=== PATIENT | male | born 1945 ===

== ENCOUNTER 2019-11-22 13:37 | Inpatient (IN) | payer MEDICARE, MEDICAID, SELFPAY ==
[2019-11-22] VITALS (8 sets, daily range): BP systolic 111–138; BP diastolic 65–81; PULSE 78–112; RESP 16–20; TEMP 36.3–36.7; O2SAT 92–99; BMI 32.2
--- NOTE | 2019-11-22 14:03 | ED_ITS ---
HPI - Fall General: Chief Complaint: Fall Stated Complaint: FALL, LAC TO LEFT EAR Time Seen by Provider: 11/22/19 13:37 History of Present Illness: HPI Narrative: 74-year-old male who fell. He lives at home he was sitting in a chair and just fell over sideways. He has frequent falls related to some kind of neurologic disorder is been a several different doctors have been unable to determine anything specific. He has a very unusual laceration across his ear extending into his cheek through the tragus. He has active bleeding from it initially he has a large bulky bandage on it which is soaked with blood this was removed and wound examined briefly and re-bandage see below. He had did have a loss of consciousness for period of time he was assisted back up by family members. He also has a right foot ulcer which is wrapped he seen at the [facility] wound clinic. complaint: fall Onset (ago): hour(s) Fall from: chair Fall witnessed: yes, by family Place fall occurred: home Loss of consciousness: Yes Length of LOC: minutes(s) Prolonged down time: no Symptoms prior to fall: none Location of injury: face Severity: mild Quality: sharp Associated symptoms-after fall: Reports weakness; Denies abdominal pain, chest pain, confusion, difficulty walking, headache(s), hematuria, lightheadedness, neck pain, numbness or short of breath Review of Systems Const: Denies: fever(s), chills, body aches, change in appetite, fatigue or malaise ENMT: Denies: throat pain, ear or mastoid pain, nasal discharge or nasal congestion Card: Denies: chest pain or lightheadedness Resp: Denies: dyspnea, productive cough or non-productive cough GI: Denies: abdominal pain : Denies: hematuria Musc: Denies: neck pain Skin/Breast: Denies: rash or pruritus Neuro: Denies: headache(s), difficulty walking or confusion PFSH ED PFSH: Medical History Chronic anemia -acute on chronic normocytic/macrocytic anemia -baseline Hg is around 10-12 -on dual antiplatelet therapy and therapeutic AC -continue to monitor H/H closely -transfuse if continued drop < 8; received 1 unit of PRBCs (11/22) CKD (chronic kidney disease), stage III Congestive heart failure -chronic combined systolic and diastolic CVA (cerebral vascular accident) -noted evidence of prior lacunar infarcts on CT head -no focal neuro deficits Diabetes mellitus -A1c-10.1 -complicated by nephropathy and peripheral neuropathy -Accucheks, ISS, hypoglycemia precautions -consistent carb diet as tolerated Dyslipidemia -lipid panel noted -CPK wnl, on statin GERD (gastroesophageal reflux disease) -on PPI Gout -no clinical evidence of acute flare -on allopurinol HTN (hypertension) -VSS; continue to monitor -continue to hold ACEi due to renal impairment Obstructive sleep apnea -severe per sleep study in 2016 Peripheral neuropathy -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 No need to resume vitamin B12 replacement Peripheral vascular disease -unknown how extensive this is -on DAPT and statin; held due to need for temporary dialysis catheter placement -on pentoxifylline Pulmonary HTN -mild per Echo Syncope -per history, has had several episodes of syncope including while driving; unclear etiology -med list includes florinef so likely component of orthostasis; orthostatics positive; on Florinef, add salt tablets -close monitoring of vital signs -telemetry monitoring -Echo: EF=45%, global left ventricular hypokinesis, G2DD, mild pulmonary hypertension, moderate MR, mild , moderate TR. -carotid US: <50% bilateral stenosis -CT head shows evidence of multiple prior lacunar infarcts involving the basal ganglia bilaterally, left caudate, right thalamus and right cerebellum. This may be contributing to his unsteady gait and poor balance. Repeat CT unchanged -UA shows evidence of infection -PT/OT evaluations appreciated: SNF recommended -noted anemia and acute renal impairment -IVF hydration -CT C-spine and facial bones noted -strict fall precautions -CPK wnl -Noted orthostatic hypotension here, in the context of poorly controlled diabetes and peripheral neuropathy suspect that this is to some degree due to autonomic dysfunction. Surgical History Hx of total knee arthroplasty Family History Other Cancer Diabetes Hypertension Denies family history of CAD (coronary artery disease) Social History (Reviewed 11/29/19 @ 11:41 by MIREYA Umana Smoking and tobacco status: never smoked Alcohol intake: never Lives independently: Yes Physical Exam Const: COMMON NORMALS: no acute distress GENERAL APPEARANCE: cooperative and comfortable HENMT: COMMON NORMALS: normocephalic HEAD & SCALP: normocephalic OTHER: Facial laceration across the lateral aspect of the cheek extending posteriorly through the tragus and through the antihelix and helix there is significant of blood present it was not irrigated since the neck had not been cleared yet. Reexamined after scans. Eye: COMMON NORMALS: Equal, round and reactive pupils present, EOMs intact bilaterally, conjunctivae normal and no scleral icterus CONJUNCTIVA: Yes conjunctivae normal PUPIL: Yes Equal, round and reactive pupils present Neck/C-Spine: COMMON NORMALS: full ROM, no lymphadenopathy, supple and no JVD Lymph: LYMPHATIC: no lymphadenopathy noted and no lymphedema noted Resp: COMMON NORMALS: normal respiratory effort, No retractions, No use of accessory muscles and clear to auscultation bilaterally AUSCULTATION: clear to auscultation bilaterally Cardio: COMMON NORMALS: no JVD, regular rate, regular rhythm and No murmurs present (Cardio) RATE: regular rate RHYTHM: regular rhythm GI: COMMON NORMALS: Soft to palpation and No hepatosplenomegaly present AUSCULTATION: Yes normoactive bowel sounds PALPATION: Yes Soft to palpation, No Tenderness to palpation present (GI), No Guarding due to palpation present (GI) and Yes No hepatosplenomegaly present Extremity: COMMON NORMALS: normal to inspection, capillary refill normal, no clubbing, cyanosis or edema, no calf tenderness and no pedal edema Skin: COMMON NORMALS: no rashes or lesions noted GENERAL SKIN EXAM: no rashes or lesions noted Procedures Laceration Laceration 1: Site: face (Cheek and ear) Side (If applicable): left Size (cm): 8 Description: irregular Depth: simple, single layer Local Anesthetic: lidocaine 1% Amount of anesthesia used (mL): 8 Pre-repair: irrigated extensively Skin layer closed with: nylon Size (cm): 5-0 Technique: simple, interrupted Course Vital Signs: Vital signs: Vital Signs Temperature 96.4 F L 11/25/19 07:00 Pulse Rate 59 L 11/25/19 14:00 Respiratory Rate 16 11/25/19 15:24 Blood Pressure 149/75 11/25/19 14:00 Pulse Oximetry 65 L 11/25/19 15:24 MDM - Fall MDM Narrative: Medical decision making narrative: Wound is irrigated after anesthetized 1% lidocaine. Patient tolerated well initially began closing across the face and the tragus also closed the outer helix. Discussed then due to another emergency Sammie CHAPA finished the suturing. Good approximation cosmesis and hemostasis I did check to suturing the a completed. Admit to Dr. Lynch. Patient has mild hyperkalemia, acute renal failure syncope peripheral neuropathy frequent falls. Lab Data: Labs: Lab Results 11/22/19 11/22/19 11/22/19 Range/Units 14:19 14:19 14:19 WBC 10.9 H (4.0-10.0) 10^3/ uL RBC 3.17 L (4.1-5.3) 10^6/u L Hgb 9.5 L (11.7-16.6) g/dL Hct 30.4 L (42.0-52.0) % MCV 95.9 H (80-94) fL MCH 30.0 (28.0-34.0) pg MCHC 31.3 (30.0-36.0) g/dL RDW 14.5 (12.1-15.1) % Plt Count 469 H (130-400) 10^3/c mm MPV 10.7 H (7.4-10.4) fL Neut % (Auto) 77.0 % Lymph % (Auto) 9.9 % [place] % (Auto) 11.0 % Eos % (Auto) 1.1 % Baso % (Auto) 0.4 % Neut # (Auto) 8.36 H (1.8-7.7) 10^3/u L Lymph # (Auto) 1.1 (0.8-4.8) 10^3/u L [place] # (Auto) 1.2 H (0.2-0.9) 10^3/u L Eos # (Auto) 0.1 (0.0-0.8) 10^3/u L Baso # (Auto) 0.0 (0.0-0.1) 10^3/u L Nucleated RBC % (a uto) 0 % Nucleated RBCs # 0.0 /100WBC Sodium 135 L (136-145) mmol/L Potassium 4.7 (3.5-5.1) mmol/L Chloride 102 (98-107) mmol/L Carbon Dioxide 21 L (22-29) mmol/L Anion Gap 16.7 (5-19) BUN 23 (8-23) mg/dL Creatinine 1.7 H (0.7-1.2) mg/dL GFR Calculation Not Reportable Glucose 92 (65-115) mg/dL Calculated Osmolal ity 276 L (285-295) mOsm/k g Calcium 9.2 (8.5-10.5) mg/dL Total Bilirubin 0.8 (0.15-1.2) mg/dL AST 33 (0-40) U/L ALT 14 (0-41) U/L Alkaline Phosphata se 311 H (40-130) IU/L Creatine Kinase 69 (39-308) U/L Total Protein 6.9 (6.6-8.7) g/dL Albumin 3.2 L (3.5-5.2) g/dL Globulin 3.7 (1.3-4.6) g/dL Urine Color (Yellow) Urine Appearance (CLEAR) Urine pH (5-7) Ur Specific Gravit y (1.005-1.030) Urine Protein (Negative) Urine Glucose (UA) (Normal) Urine Ketones (Negative) Urine Blood (Negative) Urine Nitrate (Negative) Urine Bilirubin (NEGATIVE) Urine Urobilinogen (Negative) mg/dL Ur Leukocyte Tiera ase (Negative) Urine RBC (0-2) /hpf Urine WBC (0-5) /hpf Ur Squamous Epith Cells (0-5) Amorphous Sediment Urine Bacteria (NONE) Hyaline Casts 11/22/19 Range/Units 14:33 WBC (4.0-10.0) 10^3/ uL RBC (4.1-5.3) 10^6/u L Hgb (11.7-16.6) g/dL Hct (42.0-52.0) % MCV (80-94) fL MCH (28.0-34.0) pg MCHC (30.0-36.0) g/dL RDW (12.1-15.1) % Plt Count (130-400) 10^3/c mm MPV (7.4-10.4) fL Neut % (Auto) % Lymph % (Auto) % [place] % (Auto) % Eos % (Auto) % Baso % (Auto) % Neut # (Auto) (1.8-7.7) 10^3/u L Lymph # (Auto) (0.8-4.8) 10^3/u L [place] # (Auto) (0.2-0.9) 10^3/u L Eos # (Auto) (0.0-0.8) 10^3/u L Baso # (Auto) (0.0-0.1) 10^3/u L Nucleated RBC % (a uto) % Nucleated RBCs # /100WBC Sodium (136-145) mmol/L Potassium (3.5-5.1) mmol/L Chloride (98-107) mmol/L Carbon Dioxide (22-29) mmol/L Anion Gap (5-19) BUN (8-23) mg/dL Creatinine (0.7-1.2) mg/dL GFR Calculation Glucose (65-115) mg/dL Calculated Osmolal ity (285-295) mOsm/k g Calcium (8.5-10.5) mg/dL Total Bilirubin (0.15-1.2) mg/dL AST (0-40) U/L ALT (0-41) U/L Alkaline Phosphata se (40-130) IU/L Creatine Kinase (39-308) U/L Total Protein (6.6-8.7) g/dL Albumin (3.5-5.2) g/dL Globulin (1.3-4.6) g/dL Urine Color Yellow (Yellow) Urine Appearance Clear (CLEAR) Urine pH 6 (5-7) Ur Specific Gravit y 1.020 (1.005-1.030) Urine Protein 3+ H (Negative) Urine Glucose (UA) Trace H (Normal) Urine Ketones Negative (Negative) Urine Blood 2+ H (Negative) Urine Nitrate Positive H (Negative) Urine Bilirubin Neg (NEGATIVE) Urine Urobilinogen Norm (Negative) mg/dL Ur Leukocyte Tiera ase Trace H (Negative) Urine RBC 5-10 H (0-2) /hpf Urine WBC 5-10 H (0-5) /hpf Ur Squamous Epith Cells 0-4 H (0-5) Amorphous Sediment Not Reportable Urine Bacteria 2+ H (NONE) Hyaline Casts 0-4 H Discharge Plan Discharge Patient Disposition: Admitted As Inpatient Admit Provider: Elizabeth Lynch Clinical Impression: Syncope, UTI (urinary tract infection), Altered mental status, Peripheral neuropathy, Acute renal failure Condition: Interventions: ED Discharge Assessment Last Done: 11/22/19 18:57 ED Charges Last Done: 11/22/19 18:57 Discharge Date/Time: 11/22/19 19:25 Coding Level of Care Code ED Surveyor Chain Helper for Chg Fwd Exam Comprehensive
--- NOTE | 2019-11-22 14:09 | CT_ITS ---
WS: [id number] CT CERVICAL TRAUMA TECHNIQUE: Noncontrast CT of the cervical spine with coronal and sagittal reformatted images. CLINICAL INFORMATION: fall neck pain COMPARISON: CT 10 011 DLP: 617.[address] scans at [facility] use at least one of these dose optimization techniques: automat ed exposure control; mA and/or kV adjustment per patient size (includes targeted exams where dose is matched to clinical indication); or iterative reconstruction. FINDINGS: Straightening of the normal cervical lordosis. Normal craniocervical junction. Normal C1-C2 articulat ion. Dens is normal in appearance. Normal occipital condyles. No high-grade spinal canal narrowing. N ormal C1 ring. No evidence of acute fracture or dislocation. Mild spondylitic changes cervical spine. Normal prevertebral soft tissues. Mastoids air cells are well aerated. Notified Mina Cullen DO at 11/22/2019 3:[address]/CT cervical spin wo con* [id number] IMPRESSION: No evidence of acute fracture or dislocation.
--- NOTE | 2019-11-22 14:09 | CT_ITS ---
WS: [id number] CT HEAD TECHNIQUE: Noncontrast CT of the head obtained from the skullbase to the vertex. CLINICAL INFORMATION: fall/LOC/trauma COMPARISON: CT and MRI June 12, 2017 DLP: 898.[address] scans at [facility] use at least one of these dose optimization techniques: automat ed exposure control; mA and/or kV adjustment per patient size (includes targeted exams where dose is matched to clinical indication); or iterative reconstruction. FINDINGS: No evidence of intracranial hemorrhage or mass effect. Ventricular system and basal cisterns are dove nt. Moderate small vessel changes with moderate parenchymal volume loss. Multiple chronic lacunar inf arcts in the basal ganglia. Chronic lacunar infarcts in the right cerebellum. No extra-axial fluid co llections. No evidence of mass or mass effect. Normal goff-white differentiation. Paranasal sinuses and mastoid air cells are well aerated. .Normal visualized soft tissues. Notified Mina Cullen DO at 11/22/2019 3:[address]/CT head wo con* [id number] IMPRESSION: 1. No evidence of intracranial hemorrhage or mass effect. 2. [id number] small vessel changes with moderate parenchymal volume loss . 3. Multiple chronic lacunar infarcts in the basal ganglia bilaterally, left ca udate, right thalamus, and right cerebellum. 4. No acute intracranial findings.
[2019-11-22 14:23] LABS: Basophils % 0.4 %; Eosinophils # 0.1 10^3/uL (0.0-0.8); Eosinophils % 1.1 %; Hematocrit 30.4 % (42.0-52.0); Hemoglobin 9.5 g/dL (11.7-16.6); Lymphocytes # 1.1 10^3/uL (0.8-4.8); Lymphocytes % 9.9 %; Mean Corpuscular HGB Conc 31.3 g/dL (30.0-36.0); Mean Corpuscular Volume 95.9 fL (80-94); Mean Platelet Volume 10.7 fL (7.4-10.4); Monocytes # 1.2 10^3/uL (0.2-0.9); Neutrophils # 8.36 10^3/uL (1.8-7.7); Nucleated Red Blood Cells % 0 %; Platelet Count 469 10^3/cmm (130-400); Red Blood Count 3.17 10^6/uL (4.1-5.3); Red Cell Distribution Width 14.5 % (12.1-15.1); White Blood Count 10.9 10^3/uL (4.0-10.0)
[2019-11-22 14:44] LABS: Alanine Aminotransferase 14 U/L (0-41); Albumin Level 3.2 g/dL (3.5-5.2); Alkaline Phosphatase 311 IU/L (40-130); Anion Gap 16.7 (5-19); Aspartate Amino Transferase 33 U/L (0-40); Blood Urea Nitrogen 23 mg/dL (8-23); Calcium 9.2 mg/dL (8.5-10.5); Carbon Dioxide 21 mmol/L (22-29); Chloride 102 mmol/L (98-107); Globulin 3.7 g/dL (1.3-4.6); Glucose 92 mg/dL (65-115); Osmolality Calculated 276 mOsm/kg (285-295); Potassium 4.7 mmol/L (3.5-5.1); Sodium 135 mmol/L (136-145); Total Bilirubin 0.8 mg/dL (0.15-1.2); Total Protein 6.9 g/dL (6.6-8.7)
[2019-11-22 14:47] LABS: Bilirubin Urine Neg (NEGATIVE); Blood Urine 2+ (Negative); Glucose Urine UA Trace (Normal); Ketones Urine Negative (Negative); Nitrate Urine Positive (Negative); Protein Urine 3+ (Negative); Urine Appearance Clear (CLEAR); Urine Color Yellow (Yellow); Urobilinogen Urine Norm (Negative); pH Urine 6 (5-7)
[2019-11-22 14:48] LABS: Add Urine Microscopic? YES; Leukocyte Esterase Urine Trace (Negative)
[2019-11-22 14:50] LABS: Hyaline Casts Urine 0-4; Squamous Epithelial Cell Urine 0-4 (0-5)
[2019-11-22 14:51] LABS: Add Urine Culture? Yes; Bacteria Urine 2+
--- NOTE | 2019-11-22 14:52 | PC.NURSE ---
Pt to CT at this time accompanied by CT staff x2
--- NOTE | 2019-11-22 15:06 | CT_ITS ---
WS: [id number] CT FACIAL BONES TECHNIQUE: Noncontrast facial bones with coronal and sagittal reformatted images. CLINICAL INFORMATION: fall/trauma COMPARISON: None. DLP: 774.[address] scans at [facility] use at least one of these dose optimization techniques: automat ed exposure control; mA and/or kV adjustment per patient size (includes targeted exams where dose is matched to clinical indication); or iterative reconstruction. FINDINGS: Anterior nasal bones are normal. Normal lateral orbits. Normal lamina papyracea. Paranasal sinuses ar e well aerated. Mastoid air cells are well aerated. Soft tissue edema with laceration overlying the l eft inferior and lateral facial soft tissues. Left zygoma is normal. Normal pterygoid plates. No evid ence of mandibular fracture dislocation. Normal C1 ring. Inferior orbits are normal in appearance. No rmal visualized posterior nasopharynx. Visualized upper cervical spine is normal. CT/CT facial bones wo con* [id number] IMPRESSION: 1. Soft tissue edema overlying the left facial soft tissues. 2. No visualized facial fractures. 3. Both orbits are normal. 4. Paranasal sinuses are well aerated.
--- NOTE | 2019-11-22 15:15 | PC.NURSE ---
VS taken at 1430 not 1446.
[2019-11-22] MEDS: cefTRIAXone 1,000 MG in sodium chloride 0.9% (plus) 50 ML 100 MG IV (16:25)
--- NOTE | 2019-11-22 17:40 | PC.NURSE ---
Dr. Cullen and Sammie CHAPA sutured pt left cheek and ear at this time. Pt tolerated procedure well. 19 sutures counted after procedure.
[2019-11-22] MEDS: morphine 4 mg/mL SDV 1 mL IVP (18:43)
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
[2019-11-22] MEDS: lidocaine 1% INJ 20 mL INJECTION (18:45)
[2019-11-22] MEDS: sodium chloride 0.9% 1,000 ML 999 ML IV (18:45)
[2019-11-22 19:58] LABS: Creatine Phosphokinase 69 U/L (39-308)
[2019-11-22 20:12] LABS: Troponin(5th) Baseline 297 ng/L (0-15)
--- NOTE | 2019-11-22 21:16 | ECG_ITS ---
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 Measurements Intervals [place] Rate: 80 P: 31 CT: 172 QRS: 67 QRSD: 103 T: 28 QT: 421 QTc: 486 Interpretive Statements SINUS RHYTHM ST DEVIATION AND MODERATE T-WAVE ABNORMALITY, CONSIDER ANTERIOR ISCHEMIA [-0.1+ mV T WAVE IN V3/V4] Compared to ECG 10/21/2018 23:36:50 Possible ischemia now present T-wave abnormality still present Electronically Signed On 11-24-2019 0:31:18 CDT by Lucie Bergeron M.D. [id number]
[2019-11-22 21:23] LABS: Glucose Point of Care 65 mg/dL (70-110)
[2019-11-22] MEDS: diclofenac 1% Topical Gel 100 gm 1 APPLIC TOPICAL (21:35)
[2019-11-22] MEDS: sodium chloride 0.9% 1,000 ML 100 ML IV (21:35)
[2019-11-22 21:40] LABS: Troponin 5 2HR Delta 5.3 ABS# (0-10)
[2019-11-22 21:48] LABS: Troponin 5 2HR 302.3 ng/L (0-15)
--- NOTE | 2019-11-22 22:23 | PM.EVENT ---
Event Note Event Note: Baseline troponin came back elevated at 297. Patient has no complaints of chest pain. EKG was not done but I have requested that it be done. I have gone on and resume patient's home aspirin and given him 325 mg p.o. now. Also went on and resume his statin therapy and ordered some beta-blockade. Will give Lovenox 1 mg per kg. We will need to watch for any signs of bleeding with the falls that he has had. Platelet count and hemoglobin were okay earlier, he was anemic at 9.5. Last available comparative lab was from October of last year when it was 10.3. We will continue to trend cardiac enzymes. Event Notes Attestations Time Spent in Patient Care: less than 15 minutes 12 minutes
[2019-11-22] MEDS: enoxaparin 100 mg/mL Syringe 70 MG SUBCUT (23:10)
[2019-11-22] MEDS: aspirin 325 mg EC Tablet PO (23:10)
[2019-11-22 23:19] LABS: Glucose Point of Care 123 mg/dL (70-110)
[2019-11-23] VITALS (20 sets, daily range): BP systolic 90–150; BP diastolic 53–90; PULSE 57–81; RESP 13–20; TEMP 34.3–36.9; O2SAT 90–100
--- NOTE | 2019-11-23 01:16 | ECG_ITS ---
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 Measurements Intervals [place] Rate: 78 P: 39 [place]: 176 QRS: 66 QRSD: 101 T: 27 QT: 403 QTc: 461 Interpretive Statements SINUS RHYTHM ST DEVIATION AND MODERATE T-WAVE ABNORMALITY, CONSIDER ANTERIOR ISCHEMIA [-0.1+ mV T WAVE IN V3/V4] Compared to ECG 11/22/2019 22:30:55 No significant changes Electronically Signed On 11-24-2019 0:33:06 CDT by Lucie Bergeron M.D. [id number]
[2019-11-23 01:49] LABS: Basophils % 0.5 %; Eosinophils # 0.2 10^3/uL (0.0-0.8); Eosinophils % 2.9 %; Hematocrit 26.6 % (42.0-52.0); Hemoglobin 8.3 g/dL (11.7-16.6); Lymphocytes # 1.5 10^3/uL (0.8-4.8); Lymphocytes % 18.1 %; Mean Corpuscular HGB Conc 31.2 g/dL (30.0-36.0); Mean Corpuscular Hemoglobin 31.3 pg (28.0-34.0); Mean Corpuscular Volume 100.4 fL (80-94); Mean Platelet Volume 10.9 fL (7.4-10.4); Monocytes # 1.2 10^3/uL (0.2-0.9); Neutrophils # 5.31 10^3/uL (1.8-7.7); Nucleated Red Blood Cells % 0 %; Platelet Count 392 10^3/cmm (130-400); Red Blood Count 2.65 10^6/uL (4.1-5.3); Red Cell Distribution Width 14.8 % (12.1-15.1); White Blood Count 8.3 10^3/uL (4.0-10.0)
[2019-11-23 02:15] LABS: Alanine Aminotransferase 15 U/L (0-41); Albumin Level 2.8 g/dL (3.5-5.2); Alkaline Phosphatase 306 IU/L (40-130); Anion Gap 16.8 (5-19); Aspartate Amino Transferase 35 U/L (0-40); Blood Urea Nitrogen 26 mg/dL (8-23); Calcium 7.9 mg/dL (8.5-10.5); Carbon Dioxide 21 mmol/L (22-29); Chloride 103 mmol/L (98-107); Globulin 3.8 g/dL (1.3-4.6); Glucose 135 mg/dL (65-115); Osmolality Calculated 281 mOsm/kg (285-295); Potassium 4.8 mmol/L (3.5-5.1); Sodium 136 mmol/L (136-145); Total Bilirubin 0.6 mg/dL (0.15-1.2); Total Protein 6.6 g/dL (6.6-8.7)
[2019-11-23 02:21] LABS: Cholesterol 101 mg/dL (0-200); HDL Cholesterol 44 mg/dL (60-100); LDL Cholesterol Calculated 43 mg/dL (50-129); LDL HDL Ratio 0.98 RATIO (0.00-3.22); Thyroid Stimulating Hormone 4.73 uIU/mL (0.27-4.20); Triglycerides 71 mg/dL (0-150)
[2019-11-23 02:34] LABS: Troponin 5 6HR Delta -11.9 ng/L (0-12)
[2019-11-23 02:36] LABS: Troponin 5 6HR 285.1 ng/L (0-15)
[2019-11-23 03:01] LABS: Vitamin B12 1420 pg/mL (232-1245)
[2019-11-23 03:55] LABS: Estmated Average Glucose 243; Hemoglobin A1C 10.1 % (4.0-6.0)
[2019-11-23] MEDS: sodium chloride 0.9% 1,000 ML 100 ML IV ×2 (04:45→17:34)
[2019-11-23 07:36] LABS: Glucose Point of Care 91 mg/dL (70-110)
[2019-11-23] MEDS: HYDROcodone-acetaminophen 5-325 mg Tablet 1 TAB PO (10:24)
[2019-11-23] MEDS: enoxaparin 100 mg/mL Syringe 70 MG SUBCUT (10:24)
[2019-11-23] MEDS: clopidogrel 75 mg Tablet PO (10:25)
[2019-11-23] MEDS: gemfibrozil 600 mg Tablet PO (10:25)
[2019-11-23] MEDS: aspirin 81 mg Chew Tablet PO (10:25)
[2019-11-23] MEDS: allopurinol 300 mg Tablet PO (10:26)
[2019-11-23] MEDS: pantoprazole DR 40 mg Tablet PO ×2 (10:26→17:36)
[2019-11-23] MEDS: metoprolol tartrate 25 mg Tablet PO (10:26)
[2019-11-23] MEDS: duloxetine 60 mg Capsule PO (10:27)
[2019-11-23] MEDS: diclofenac 1% Topical Gel 100 gm 1 APPLIC TOPICAL ×2 (10:33→13:24)
[2019-11-23] MEDS: fludrocortisone 0.1 mg Tablet PO (10:34)
--- NOTE | 2019-11-23 10:50 | PC.CHAP ---
Pastoral Care Encounter/Spiritual Assessment Type of Contact [] Declined dormitory supervisor visit [] Patient/Family/Request visit [] Outpatient visit [] Follow-up visit [] Physician referral [] Code/Alert [x] Routine visit [] Staff referral [] Actively dying [] Patient sleeping [] Family support [] [] Out of room [] Palliative care [] [x] Receiving care in room [] Pre-surgical visit [] Trauma [] Long length of stay [] ICU visit [] Other: Relational/Emotional Strength [x] Patient feels connected with others/family/visitors/staff [] Distress [] Loneliness/isolation [] Abandonment Spirituality of Patient [x] Person of Keyla [] Attends Oriental Orthodox of their Keyla [x] Believes in Prayer [] Reads Bible or Zoroastrian materials [] There are Spiritual issues to be addressed Lifestyle Coordinator Interventions [x] Prayer [x] Active listening [x] Non-anxious presence [x] Spiritual/emotional support [] Crisis/trauma care [x] Spiritual counseling [] Bereavement support [] Provided bereavement packet [] Provided Bible/devotional materials [] Provided toy/stuffed animal, coloring book to patient or family member [] Provided Communion [] Anointing/[place] [] Salvation [x] Completed spiritual assessment [] Other: Impact on Illness or Injury [] Angry [x] Fearful [x] Anxious [] Often cries [] Exhaustion [] Unable to work [] Unable to attend mormon [] Unable to walk/stand [] Unable to read [] Unable to drive [] Unable to eat/drink [] Unable to sleep [] Unable to be with family [] Patient intubated [] Other: Summary Falls alot, in pain, doesn't know about tests waiting to see doctor, feels good able to communicate her feelings Time spent with patient 10 mins
--- NOTE | 2019-11-23 11:09 | PM.PN ---
Subjective Subjective: Interval history: Found to be orthostatic, on room air, afebrile, currently hemodynamically stable. Noted drop in hemoglobin from 9.5->8.3 which may dilutional. Slight worsening in renal function with creatinine up to 1.8. Noted troponin elevation with a delta of -12. Overnight was started on therapeutic Lovenox, Plavix, aspirin due to concern for NSTEMI. Echo and carotid ultrasound pending. On IV fluid hydration, ceftriaxone. R foot wound cleaned and dressed by provider at bedside. Continues to be orthostatic, initially sitting in a chair by bedside then complained of dizziness. Quite weak per discussion with therapy some oozing noted from left ear laceration. Assisted to bed with nursing staff. Medications: Reviewed: Yes Medication Review Details: Active Medications Generic Name Dose Route Start Last Admin Trade Name Freq PRN Reason Stop Dose Admin Hydrocodone Bitart /Acetaminophen 1 tab 11/22/19 19:26 11/23/19 10:24 Liberty 5-325 Mg PO 1 tab Q4H PRN Administration MODERATE TO SEVER E PAIN Allopurinol 300 mg 11/23/19 09:00 11/23/19 10:26 Zyloprim PO 300 mg DAILY PETER Administration Aspirin 81 mg 11/23/19 09:00 11/23/19 10:25 Aspirin Chewable PO 81 mg DAILY PETER Administration Clopidogrel Bisulf ate 75 mg 11/23/19 09:00 11/23/19 10:25 Plavix PO 75 mg DAILY PETER Administration Dextrose 25 ml 11/22/19 18:56 D50w IVP ONCE PRN hypoglycemia prot ocol Protocol Dextrose 50 ml 11/22/19 18:56 D50w IVP PRN PRN hypoglycemia prot ocol Protocol Diclofenac Sodium 1 applic 11/22/19 21:00 11/23/19 10:33 Voltaren TOPICAL 1 applic QID PETER Administration Duloxetine HCl 60 mg 11/23/19 09:00 11/23/19 10:27 Cymbalta PO 60 mg DAILY PETER Administration Enoxaparin Sodium 70 mg 11/22/19 22:30 11/23/19 10:24 Lovenox 1 mg/kg (70 mg) 70 mg SUBCUT Administration Q12H [facility] Fludrocortisone Ac etate 0.1 mg 11/23/19 09:00 11/23/19 10:34 Florinef PO 0.1 mg DAILY PETER Administration Gemfibrozil 600 mg 11/23/19 09:00 11/23/19 10:25 Lopid PO 600 mg BID PETER Administration Glucagon 1 mg 11/22/19 18:56 Glucagen IM ONCE PRN Adult Acute Hypog lycemia Prot. Protocol Dextrose 500 mls @ 100 mls /hr 11/22/19 18:56 D5w IV ONCE PRN Adult Acute Hypog lycemia Prot Protocol Ceftriaxone Sodium 1,000 mg/ 50 mls @ 100 mls/ hr 11/23/19 16:00 Sodium Chloride IV Q24H PETER Protocol Sodium Chloride 1,000 mls @ 100 m ls/hr 11/22/19 19:26 11/23/19 04:45 Sodium Chloride 0.9% IV 100 mls/hr .Q10H PETER Administration Insulin Aspart 0 unit 11/22/19 21:00 11/23/19 07:53 Novolog SUBCUT Not Given WM&BEDTIME [facility] Protocol Insulin Detemir 20 unit 11/22/19 21:00 11/22/19 21:36 Levemir SUBCUT Not Given BEDTIME [facility] Metoprolol Tartrat e 25 mg 11/23/19 09:00 11/23/19 10:26 Lopressor PO 25 mg BID PETER Administration Morphine Sulfate 2 mg 11/22/19 19:26 Morphine IVP Q4H PRN SEVERE PAIN Non-Formulary Medi cation 400 mg 11/22/19 21:00 11/22/19 21:26 Pentoxifylline PO Not Given TID [facility] Ondansetron HCl 4 mg 11/22/19 19:26 Zofran IVP Q6H PRN NAUSEA AND VOMITI NG Pantoprazole Sodiu m 40 mg 11/23/19 09:00 11/23/19 10:26 Protonix PO 40 mg BID PETER Administration No Known Allergies Allergy (Verified 11/22/19 13:46) Vitals/I&O/Wt Last Vital Signs Temp 97.6 F 11/23/19 08:00 Pulse 79 11/23/19 08:00 Resp 16 11/23/19 08:00 BP 149/79 11/23/19 08:00 Pulse Ox 92 11/23/19 08:00 11/22/19 11/23/19 11/23/19 22:59 06:59 14:59 Intake Total 1216.667 / 1216.667 Output Total 0 / 0 250 / 250 Balance 0 / 0 1216.667 / 1216.667 -250 / -250 Weight last 48 hrs Weight 67.585 kg Physical Exam Const: COMMON NORMALS: no acute distress, patient oriented x3 and alert GENERAL APPEARANCE: cooperative, comfortable, frail appearing and appears older than stated age NUTRITIONAL APPEARANCE: obese centrally obese ORIENTATION/CONSCIOUSNESS: Yes awake HENMT: COMMON NORMALS: normocephalic, atraumatic and hearing grossly normal bilaterally HEAD & SCALP: normocephalic and atraumatic EXTERNAL EAR: Yes external ear abnormal (long laceration on external L ear extending to cheek) MOUTH: moist mucous membranes abnormal Details: parched TEETH & GINGIVA: Yes poor dentition Eye: COMMON NORMALS: Equal, round and reactive pupils present, EOMs intact bilaterally and conjunctivae normal CONJUNCTIVA: Yes conjunctivae normal PUPIL: Yes Equal, round and reactive pupils present Neck/C-Spine: COMMON NORMALS: full ROM GENERAL: Yes normal visual inspection and Yes trachea midline Resp: COMMON NORMALS: normal respiratory effort, No retractions, No use of accessory muscles and clear to auscultation bilaterally EFFORT & INSPECTION: Yes able to speak in complete sentences, Yes symmetric chest movement and No tachypneic AUSCULTATION: clear to auscultation bilaterally OTHER: -on RA Cardio: COMMON NORMALS: regular rate, regular rhythm, S1 normal heart sound present, S2 normal heart sound present and No murmurs present (Cardio) RATE: regular rate RHYTHM: regular rhythm HEART SOUNDS: S1 normal heart sound present and S2 normal heart sound present GI: COMMON NORMALS: Normal to inspection, nondistended, normoactive bowel sounds present, Soft to palpation and non-tender PALPATION: Yes Soft to palpation Extremity: COMMON NORMALS: normal to inspection NARRATIVE EXTREMITY EXAM: -non-pitting ankle edema now resolved Neuro: COMMON NORMALS: patient oriented x3, moves all extremities and no focal motor deficits SENSORIUM/ORIENTATION: Yes alert SPEECH: speech normal SENSORY EXAM: Yes sensory level loss detected (bilateral LEs) MOTOR EXAM: Normal motor muscle tone present throughout Psych: COMMON NORMALS: mental status grossly normal, Normal thought process present, cooperative, normal affect and speech normal SPEECH: Yes normal speech THOUGHT PROCESS: Normal thought process present Skin: COMMON NORMALS: no jaundice and no mottling NARRATIVE SKIN EXAM: -skin tears on upper extremities -laceration over L external ear extending to cheek, sutured -scabs over bilateral knees and legs -scattered bruising diffusely -callus on R great toe; 1.5 x 1.0 well circumscribed lesion on R lateral ankle, no odor, no drainage, good granulation tissue on wound bed, no tunneling NAILS: dystrophic (fingernails) Data : 11/23/19 12:02 11/23/19 01:25 Micro: Microbiology 11/22/19 16:05 Blood Culture - Preliminary Blood SPECIMEN COLLECTED 11/22/19 16:10 Blood Culture - Preliminary Blood SPECIMEN COLLECTED A&P Assessment and plan (1) Syncope: -per history, has had several episodes of syncope including while driving; unclear etiology -med list includes florinef so likely component of orthostasis; orthostatics positive; on Florinef, add salt tablets -close monitoring of vital signs -telemetry monitoring -order Echo and carotid US for further evaluation -CT head shows evidence of multiple prior lacunar infarcts involving the basal ganglia bilaterally, left caudate, right thalamus and right cerebellum. This may be contributing to his unsteady gait and poor balance -UA shows evidence of infection -PT/OT evaluations appreciated: SNF recommended -noted anemia and acute renal impairment -IVF hydration -CT C-spine and facial bones noted -strict fall precautions -CPK wnl -Noted orthostatic hypotension here, in the context of poorly controlled diabetes and peripheral neuropathy suspect that this is to some degree due to autonomic dysfunction. Status: Acute Qualifiers: Syncope type: unspecified Qualified Code(s): R55 - Syncope and collapse (2) NSTEMI (non-ST elevated myocardial infarction): -noted troponin elevation with delta of -12. Has underlying renal impairment -serial ECGs -telemetry monitoring -Echo pending -on therapeutic Lovenox, ASA, Plavix, statin, BB -order nuclear stress testing for further evaluation Status: Acute (3) UTI (urinary tract infection): -symptomatic with noted dysuria, urinary frequency -suspect underlying BPH with noted nocturia but would hold off on adding Flomax due to concern for orthostasis -continue Ceftriaxone -f/u urine and blood cx -continue to monitor urine output -mild leukocytosis now resolved, currently afebrile Status: Acute Qualifiers: Hematuria presence: without hematuria Urinary tract infection type: acute cystitis Qualified Code(s): N30.00 - Acute cystitis without hematuria (4) Peripheral neuropathy: -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 No need to resume vitamin B12 replacement Status: Chronic Qualifiers: Peripheral neuropathy type: polyneuropathy, unspecified Qualified Code(s): G62.9 - Polyneuropathy, unspecified (5) Dyslipidemia: -lipid panel noted -CPK wnl, resume statin Status: Chronic (6) Peripheral vascular disease: -unknown how extensive this is -on DAPT and statin -on pentoxifylline Status: Chronic (7) HTN (hypertension): -VSS; continue to monitor -continue to hold ACEi due to renal impairment Status: Chronic Qualifiers: Hypertension type: essential hypertension Qualified Code(s): I10 - Essential (primary) hypertension (8) Diabetes mellitus: -A1c-10.1 -complicated by nephropathy and peripheral neuropathy -Accucheks, ISS, hypoglycemia precautions -consistent carb diet as tolerated Status: Chronic Qualifiers: Diabetes mellitus complication status: with other specified complication Diabetes mellitus intermodal customer service insulin use: with intermodal customer service use Diabetes mellitus type: type 2 Qualified Code(s): E11.69 - Type 2 diabetes mellitus with other specified complication; Z79.4 - manager terminal (current) use of insulin (9) CKD (chronic kidney disease), stage III: -ROSENDA on CKD stage 2-3 -baseline Cr appears to be 1-1.3 -likely secondary to dehydration -IVF hydration -avoid nephrotoxins, renally dose meds Status: Acute (10) Chronic anemia: -acute on chronic normocytic/macrocytic anemia -baseline Hg is around 10-12 -on dual antiplatelet therapy and therapeutic AC -monitor H/H closely -transfuse if continued drop < 8 Status: Acute (11) CVA (cerebral vascular accident): -noted evidence of prior lacunar infarcts on CT head -no focal neuro deficits Status: Chronic Qualifiers: CVA mechanism: unspecified Qualified Code(s): I63.9 - Cerebral infarction, unspecified (12) Gout: -no clinical evidence of acute flare -on allopurinol Status: Chronic Qualifiers: Chronicity: chronic Gout etiology: unspecified cause Gout site: unspecified site Presence of tophus: without tophus Qualified Code(s): M1A.9XX0 - Chronic gout, unspecified, without tophus (tophi) (13) GERD (gastroesophageal reflux disease): -on PPI Status: Chronic Qualifiers: Esophagitis presence: esophagitis presence not specified Qualified Code(s): K21.9 - Gastro-esophageal reflux disease without esophagitis Additional A&P Information -Morbid obesity: BMI-32 kg/m2 -Chronic RLE wound; has been f/u at [facility] wound care clinic; has services -Request ST evaluation for cognitive testing suspicious given additional history obtained from daughter that he may have some degree of dementia, likely vascular due to history of prior CVA/TIAs -GI ppx with PPI -DVT ppx with SCDs, on therapeutic lovenox -Dispo: home with services through spring; discussed possibility of SNF placement which he is willing to consider, has been to [facility] [place] before -Code status: FULL code -spoke to daughter Angelic and updated her on patient's clinical status Attestations Medical Necessity Statement*: Patient requires hospitalization for continued workup of syncope, NSTEMI, anemia, treatment of UTI. Time Spent in Patient Care: Greater than 35 minutes (>than 50% of time spent in counselling and/or direct pt care on unit). Coding Level of Care Code Acute Recreational Counselor for [facility] Fwd Exam Comprehensive Diagnoses Syncope R55 Syncope type: unspecified NSTEMI (non-ST elevated myocardial infarction) I21.4 UTI (urinary tract infection) N30.00 Hematuria presence: without hematuria Urinary tract infection type: acute cystitis Peripheral neuropathy G62.9 Peripheral neuropathy type: polyneuropathy, unspecified Dyslipidemia E78.5 Peripheral vascular disease I73.9 HTN (hypertension) I10 Hypertension type: essential hypertension Diabetes mellitus E11.69; Z79.4 Diabetes mellitus complication status: with other specified complication Diabetes mellitus intermodal customer service insulin use: with intermodal customer service use Diabetes mellitus type: type 2 CKD (chronic kidney disease), stage III N18.3 Chronic anemia D64.9 CVA (cerebral vascular accident) I63.9 CVA mechanism: unspecified Gout [id number].[id number] Chronicity: chronic Gout etiology: unspecified cause Gout site: unspecified site Presence of tophus: without tophus GERD (gastroesophageal reflux disease) K21.9 Esophagitis presence: esophagitis presence not specified
[2019-11-23 11:14] LABS: Glucose Point of Care 178 mg/dL (70-110)
[2019-11-23 12:12] LABS: Hematocrit 27.7 % (42.0-52.0); Hemoglobin 8.3 g/dL (11.7-16.6)
[2019-11-23 15:47] LABS: SARS Covid-2 Antigen Negative (Negative)
[2019-11-23 16:09] LABS: ABG PCO2 38.1 mmHg (35-45); ABG PH Result 7.28 (7.35-7.45); Arterial Blood Gas Hematocrit 24.8 % (42-52); Base Excess ABG -8.3 mmol/L (-2.0-2.0); Blood Gas Allen Test Pos; Blood Gas Sample Type Arterial; Carboxyhemoglobin 1.2 %THgb (0.4-20.1); HCO3 ABG 17.8 mmol/L (22-26); Ionized Calcium Level - ABG 1.1 mmol/L (1.1-1.4); Methemoglobin 1.5 % (0.4-1.5); Oxygen Saturation ABG 96.5; Potassium Level - ABG 5.7 mmol/L (3.5-5.0); Total Hemoglobin 8.1 g/dL (14-18)
[2019-11-23 16:10] LABS: Blood Gas Operator Identificat ED; Blood Gas Sample Site Radial, left; Oxygen Device NC
[2019-11-23 16:45] LABS: Basophils % 0.3 %; Eosinophils # 0.1 10^3/uL (0.0-0.8); Eosinophils % 0.7 %; Hematocrit 26.7 % (42.0-52.0); Lymphocytes # 0.7 10^3/uL (0.8-4.8); Mean Corpuscular Hemoglobin 30.8 pg (28.0-34.0); Mean Corpuscular Volume 102.7 fL (80-94); Mean Platelet Volume 10.9 fL (7.4-10.4); Monocytes % 10.6 %; Neutrophils % 79.5 %; Nucleated Red Blood Cells % 0 %; Platelet Count 390 10^3/cmm (130-400); Red Cell Distribution Width 14.8 % (12.1-15.1); White Blood Count 9.2 10^3/uL (4.0-10.0)
--- NOTE | 2019-11-23 16:52 | PC.NURSE ---
PT TRANSFERRED TO ICU, REPORT GIVEN TO RD REYES.
[2019-11-23 16:59] LABS: INR 1.28 (0.8-1.2)
[2019-11-23 17:03] LABS: Alanine Aminotransferase 21 U/L (0-41); Albumin Level 2.7 g/dL (3.5-5.2); Alkaline Phosphatase 289 IU/L (40-130); Anion Gap 17.9 (5-19); Aspartate Amino Transferase 42 U/L (0-40); Blood Urea Nitrogen 32 mg/dL (8-23); Calcium 7.8 mg/dL (8.5-10.5); Carbon Dioxide 19 mmol/L (22-29); Chloride 102 mmol/L (98-107); Globulin 3.6 g/dL (1.3-4.6); Glucose 292 mg/dL (65-115); Magnesium 2.1 mg/dL (1.7-2.3); Osmolality Calculated 284 mOsm/kg (285-295); Potassium 5.9 mmol/L (3.5-5.1); Sodium 133 mmol/L (136-145); Total Bilirubin 0.6 mg/dL (0.15-1.2); Total Protein 6.3 g/dL (6.6-8.7)
[2019-11-23 17:06] LABS: Lactate (Lactic Acid level) 2.4 mmol/L (0.5-2.2)
[2019-11-23 17:14] LABS: Glucose Point of Care 278 mg/dL (70-110)
[2019-11-23] MEDS: cefTRIAXone 1,000 MG in sodium chloride 0.9% (plus) 50 ML 100 MG IV (17:34)
[2019-11-23] MEDS: sodium chloride 1 gm Tablet PO (17:37)
[2019-11-23 17:41] LABS: Troponin T (5th) Once 288 ng/L (0-15)
[2019-11-23 17:47] LABS: Cortisol Random 20.55 ug/mL (2.47-19.5)
--- NOTE | 2019-11-23 18:25 | PC.NURSE ---
AT APPROXIMATELY 1030 AM THIS NURSE WAS GIVING MORNING MEDICATIONS WHEN I NOTICED THERE WAS BOTTLE OF CBD OIL NEXT TO BEDSIDE. THIS NURSE ASKED PT WHEN HE LAST TOOK THE CBD OIL HE STATED ABOUT 1 HOUR AGO , THIS NURSE INFORMED DR MURPHY AND THEN PLACED CBD OIL IN PYXIS. PT AWARE OF CBD OIL BEING PLACED IN PYXIS.
--- NOTE | 2019-11-23 18:28 | PC.NURSE ---
APPROXIMATELY 1420 THIS NURSE WAS MADE AWARE THAT PT FELT THOUGH HE COULD NOT BREATH, THIS NURSE GOT A SET OF VITALS AND TURNED OXYGEN UP TO 3 LITERS NC. VITALS WERE WITHIN RANGE OTHER THEN OXYGEN SATURATION READING 80% ONCE OXYGEN WAS UP TO 3 LITERS PT O2 SATURATION BECAME TO GO UP WITHIN NORMAL RANGE. PT SKIN TEAR TO RIGHT FOREARM THAT WAS THERE AT BEGINNING OF SHIFT BEGAN TO BLEED, THIS NURSE PLACED AN OPTIFOAM TO RIGHT FOREARM. DR MURPHY INFORMED OF THIS.
--- NOTE | 2019-11-23 18:32 | PC.NURSE ---
AT APPROXIMATELY 1534 THIS NURSE WAS INFORMED FROM [employer] ARCHITECT THAT PT TEMP WAS 93.7, THIS NURSE THEN GOT A RECTAL TEMP THAT READ 94.4. HEATED BLANKETS WERE PLACED ON PT, WELLNESS RN GOT BEAR HUGGER FOR PT TO HELP WARM THE PT, AND DR MURPHY INFORMED. DR MURPHY THEN ASSESSED PT AND DECIDED TO PROCEED WITH TRANSFER TO ICU. DAUGHTER WAS AT BEDSIDE DURING TRANSFER.
--- NOTE | 2019-11-23 19:26 | USCV_ITS ---
Dinh Concepcion Age: 74 Gender: M : 1945 Exam Date: 11/23/2019 06:08 Ordering Phys: Elizabeth Lynch MD Technologist: Gricelda Weiss [place] [facility] [place]: SYNCOPE Risk Factors: Previous Vascular Surgery: Right Brachial BP: / Left Brachial BP: / Right Left Velocity (cm/s) Spectral Plaque Velocity (cm/s) Spectral Plaque Syst/Diast Broadening Syst/Diast Broadening 48.50/ 14.30 Prox CCA 80.80 / 18.30 76.10/ 23.20 Mid CCA 55.00 / 21.70 42.70/ 13.10 Distal CCA 46.80 / 19.00 122.30/50.00 Prox ICA 42.10 / 17.00 111.90/46.60 Mid ICA 44.10 / 15.60 60.60/ 28.00 Distal ICA 52.30 / 20.40 73.50 ECA 49.60 1.61 ICA/CCA 0.95 Antegrade Vertebral Antegrade 26.90/ 8.50 cm/s 44.10/ 14.30 cm/s Tri Subclavian Tri 72.30 69.90 CONCLUSIONS Right ICA stenosis <50%. Left ICA stenosis <50%. Normal antegrade Doppler flow noted in the right vertebral artery. Normal antegrade Doppler flow noted in the left vertebral artery. Bob Cesar MD (Electronically Signed) Final Date: 23 November 2019 12:00 S
--- NOTE | 2019-11-23 19:26 | USCV_ITS ---
Dinh Concepcion Age: 74 Gender: M : 1945 Exam Date: 11/23/2019 05:55 Ordering Phys: Elizabeth Lynch MD Technologist: Gricelda Weiss [place] [facility] [place]ication: SYNCOPE BP: 137 / 81 HR: 79 Rhythm: Sinus Technical Quality: Adequate MEASUREMENTS (Male / Female) Normal Values 2D ECHO LV Diastolic Diameter PLAX 3.8 cm 4.2 - 5.9 / 3.9 - 5.3 cm LV Systolic Diameter PLAX 2.6 cm LV Chamber Size 3.6 cm IVS Diastolic Thickness 1.2 cm 0.6 - 1.0 / 0.6 - 0.9 cm IVS Systolic Thickness 1.3 cm LVPW Diastolic Thickness 1.7 cm 0.6 - 1.0 / 0.6 - 0.9 cm LVPW Systolic Thickness 1.9 cm RV Chamber Size 3.1 cm LVOT Diameter 2.0 cm LV Ejection Fraction 2D Teich 60.8 % LV Ejection Fraction MOD 2C 40.2 % LV Ejection Fraction 2C AL 39.2 % LA Diameter 3.8 cm LA Width 3.4 cm LA Height 4.2 cm RA Width 3.2 cm RA Height 4.0 cm Aorta at Sinotubular Diameter 2.8 cm M-MODE LV Diastolic Diameter MM 5.7 cm 4.2 - 5.9 / 3.9 - 5.3 cm LV Systolic Diameter MM 4.4 cm LV Ejection Fraction MM Teich 46.2 % IVS Diastolic Thickness MM 0.6 cm 0.6 - 1.0 / 0.6 - 0.9 cm IVS Systolic Thickness MM 1.2 cm LVPW Diastolic Thickness MM 0.7 cm 0.6 - 1.0 / 0.6 - 0.9 cm LVPW Systolic Thickness MM 1.2 cm Aortic Annulus Diameter 3.1 cm LA Ao Ratio MM 1.2 MV E Point Septal Separation 1.5 cm DOPPLER AV Peak Velocity 166.0 cm/s LVOT Peak Velocity 101.0 cm/s AV Area Cont Eq vti 1.6 cm squared AV Area Cont Eq pk 1.9 cm squared MV Area PHT 4.5 cm squared Mitral E to A Ratio 1.7 MV E' Velocity 11.0 cm/s Mitral E to MV E' Ratio 13.3 Mitral E to LV E' Lateral Ratio 10.6 Mitral E to LV E' Septal Ratio 18.4 TR Peak Velocity 297.0 cm/s TR Peak Gradient 35.3 mmHg TR Mean Velocity 211.1 cm/s TR Mean Gradient 20.9 mmHg TR Velocity Time Integral 102.9 cm TV Peak E Velocity 46.0 cm/s Right Atrial Pressure 3.0 mmHg Pulmonary Artery Systolic Pressu 38.3 mmHg PV Peak Velocity 47.0 cm/s RV Acceleration Time 0.1 s RV Ejection Time 0.3 s RV AcT/ET 0.4 FINDINGS Left Ventricle Normal left ventricular cavity size. Moderately decreased left ventricular systolic function. Left ventricular ejection fraction is estimated at 45 %. Global left ventricular hypokinesis.Grade II/IV diastolic dysfunction, moderately elevated filling pressures. Right Ventricle The right ventricle is normal in size and function. Mild pulmonary hypertension, RVSP 38.3 mmHg. Right Atrium The right atrium is normal in size. Left Atrium The left atrium is normal in size. Mitral Valve Moderately thickened mitral valve. Moderate mitral annular calcification. No mitral valve stenosis. Moderate mitral valve regurgitation. Aortic Valve Moderate aortic valve calcification. Mild aortic valve stenosis, mean gradient 4.6 mmHg, JUAN FRANCISCO 1.6 cm squared. No aortic valve regurgitation. Tricuspid Valve Moderate tricuspid valve regurgitation. Pulmonic Valve Structurally normal pulmonic valve without significant stenosis. There is no pulmonic regurgitation. Pericardium Normal pericardium without effusion. Aorta Normal ascending aorta dimension. CONCLUSIONS 1-Normal left ventricular cavity size. Moderately decreased left ventricular systolic function. Left ventricular ejection fraction is estimated at 45 %. Global left ventricular hypokinesis.Grade II/IV diastolic dysfunction, moderately elevated filling pressures. 2-The right ventricle is normal in size and function. Mild pulmonary hypertension, RVSP 38.3 mmHg. 3-Moderately thickened mitral valve. Moderate mitral annular calcification. No mitral valve stenosis. Moderate mitral valve regurgitation. 4-Moderate aortic valve calcification. Mild aortic valve stenosis, mean gradient 4.6 mmHg, JUAN FRANCISCO 1.6 cm squared. No aortic valve regurgitation. 5-Moderate tricuspid valve regurgitation. 6-There is no pericardial effusion. 7-Right atrial pressure is around 5 mm of mercury. 8-There are no prior echocardiogram studies to compare. Leena Lynn MD (Electronically Signed) Final Date: 23 November 2019 17:55 S
[2019-11-23] MEDS: insulin regular-human 10 UNIT in SYRINGE 1 EACH IVP (19:48)
[2019-11-23] MEDS: dextrose 50% syringe 50 mL 25 ML IVP (19:50)
[2019-11-23] MEDS: sodium bicarbonate 8.4% 1 mEq/mL 50mL Syr 50 MEQ IVP (19:50)
--- NOTE | 2019-11-23 20:04 | CTR_ITS ---
PROCEDURE INFORMATION: Exam: CT Head Without Contrast Exam date and time: 11/23/2019 8:11 PM Age: 74 years old Clinical indication: Altered mental status/memory loss; Additional info: Change in mental status, drop in hg, evaluate for bleeding TECHNIQUE: Imaging protocol: Computed tomography of the head without contrast. Sagittal and coronal reformatted images were created and reviewed. Radiation optimization: All CT scans at this facility use at least one of these dose optimization techniques: automated exposure control; mA and/or kV adjustment per patient size (includes targeted exams where dose is matched to clinical indication); or iterative reconstruction. COMPARISON: CT head wo con* [id number] 11/22/2019 3:07 PM RADIATION DOSE METRICS: Total DLP (mGy-cm): 1445.99 FINDINGS: Brain: A occurNo acute intracranial hemorrhage. No acute infarct. No intra-axial or extra-axial masses. Garica-white matter differentiation is preserved. No cerebral edema. No extra-axial fluid collections. No midline shift. No evidence for Chiari 1 malformation. Stable mild atrophy of the brain parenchyma. Focal areas of decreased attenuation consistent with old lacunar infarcts in the the right and left basal ganglia and the right cerebellar hemisphere. Findings are stable. Ventricles: No hydrocephalus. Bones/joints: Moderate right nasal septal deviation. Sinuses: Visualized paranasal sinuses are clear. Mastoid air cells: Small amount of fluid in the right and left mastoid air cells. Orbits: Globes and lenses, extraocular muscles, and optic nerves are intact bilaterally. No acute intraorbital abnormality. Vasculature: Stable atherosclerotic calcifications in the visualized arteries. Soft tissues: No acute abnormality of the extracranial soft tissues. CT/CT head wo con* [id number] IMPRESSION: 1. No acute abnormality of the brain. 2. Stable mild atrophy of the brain parenchyma. 3. Focal areas of decreased attenuation consistent with old lacunar infarcts in the the right and left basal ganglia and the right cerebellar hemisphere. Findings are stable. 4. Small amount of fluid in the right and left mastoid air cells. 5. Incidental/nonacute findings are listed in the report. Radiation Dose CTDIVOL = (mGy): DLP = 1445.99 (mGy-cm)
[2019-11-23] MEDS: ondansetron 2 mg/ML SDV 2 mL 4 MG IVP ×2 (20:10→20:12)
[2019-11-23] MEDS: calcium gluconate 0.1 gm/mL 10% SDV 10mL 1 GM IVP (20:12)
[2019-11-23 21:30] LABS: Glucose Point of Care 115 mg/dL (70-110)
[2019-11-23] MEDS: sodium chloride 0.9% (100 ml) 100 ML (22:50)
[2019-11-24] VITALS (21 sets, daily range): BP systolic 97–162; BP diastolic 55–88; PULSE 61–72; RESP 8–19; TEMP 35.3–37.2; O2SAT 83–100
[2019-11-24] MEDS: sodium chloride 0.9% 1,000 ML 100 ML IV ×2 (01:32→14:53)
[2019-11-24 05:23] LABS: Basophils % 0.3 %; Eosinophils % 0.3 %; Hematocrit 30.2 % (42.0-52.0); Hemoglobin 9.3 g/dL (11.7-16.6); Lymphocytes # 1.4 10^3/uL (0.8-4.8); Lymphocytes % 11.6 %; Mean Corpuscular HGB Conc 30.8 g/dL (30.0-36.0); Mean Corpuscular Hemoglobin 29.6 pg (28.0-34.0); Mean Corpuscular Volume 96.2 fL (80-94); Mean Platelet Volume 11.2 fL (7.4-10.4); Monocytes # 1.6 10^3/uL (0.2-0.9); Monocytes % 13.2 %; Neutrophils # 8.82 10^3/uL (1.8-7.7); Neutrophils % 73.9 %; Nucleated Red Blood Cells # 0.1 /100WBC; Nucleated Red Blood Cells % 0.4 %; Platelet Count 362 10^3/cmm (130-400); Red Blood Count 3.14 10^6/uL (4.1-5.3); Red Cell Distribution Width 15.4 % (12.1-15.1); White Blood Count 11.9 10^3/uL (4.0-10.0)
[2019-11-24 05:53] LABS: Magnesium 2.2 mg/dL (1.7-2.3)
--- NOTE | 2019-11-24 06:00 | US_ITS ---
WS: [id number] ULTRASOUND RENAL TECHNIQUE: Ultrasound examination of both kidneys. CLINICAL INFORMATION: acute renal failure, oliguria COMPARISON: None. FINDINGS: RIGHT: Right kidney is normal in size and appearance. Tiny nonobstructing calculus right kidney 4 mm Echogenicity: Normal. Cortical thickness: 1.5 cm; Normal. Hydronephrosis: None. Perinephric fluid: None. Right kidney measures: 10.6 cm x 5.2 cm x 5.9 cm. LEFT: Left kidney is normal in size and appearance. Echogenicity: Normal. Cortical thickness: 1.6 cm; Normal. Hydronephrosis: None. Perinephric fluid: None. Left kidney measures: 10.0 cm x 4.7 cm x 6.0 cm. Normal visualized aorta. Hilario catheter US/US renal BI* [id number] IMPRESSION: 1. No hydronephrosis in either kidney. 2. Tiny nonobstructing renal parenchymal calculus right kidney 4 mm. 3. Hilario catheter.
[2019-11-24 06:02] LABS: Blood Urea Nitrogen 39 mg/dL (8-23); Calcium 7.7 mg/dL (8.5-10.5); Carbon Dioxide 19 mmol/L (22-29); Chloride 105 mmol/L (98-107); Glucose 70 mg/dL (65-115); Osmolality Calculated 282 mOsm/kg (285-295); Sodium 138 mmol/L (136-145)
[2019-11-24 06:06] LABS: Cortisol Random 8.58 ug/mL (2.47-19.5)
[2019-11-24 06:07] LABS: Calcium 8.1 mg/dL (8.5-10.5); Parathyroid Hormone 179.3 pg/mL (15-65)
[2019-11-24 06:09] LABS: Phosphorus 7.7 mg/dL (2.5-4.5)
[2019-11-24 07:57] LABS: Glucose Point of Care 71 mg/dL (70-110)
--- NOTE | 2019-11-24 08:08 | P.PN_ITS ---
Subjective Subjective: Interval history: Temperature normalized, BP improved, HR wnl, remains on NC. Improved Hg after transfusion of 1 unit of PRBCs, CT head unchanged. Had urine output of 250 mL overnight, worsening renal function, hyperphosphatemia, increased anion gap, increased leukocytosis, hyperkalemia. Seen and examined several times throughout the day. Initially seen this morning, resting quietly in bed. Briefly discussed case with Dr. Staley from nephrology. Will start stress dose steroids. Discontinue anticoagulation for now in case of need for hemodialysis catheter placement. Seen in the afternoon, daughter visiting at bedside, updated her on patient's clinical status. Following our visit patient had an unwitnessed fall while trying to get to the bedside commode. Awake, alert, aware of where he is, cleaned up and assisted to bedside commode with nursing staff. Had a copious bowel movement. Initiate one-on-one monitoring. Medications: Reviewed: Yes Medication Review Details: Active Medications Generic Name Dose Route Start Last Admin Trade Name Freq PRN Reason Stop Dose Admin Hydrocodone Bitart /Acetaminophen 1 tab 11/22/19 19:26 11/23/19 10:24 [place] 5-325 Mg PO 1 tab Q4H PRN Administration MODERATE TO SEVER E PAIN Allopurinol 300 mg 11/23/19 09:00 11/23/19 10:26 Zyloprim PO 300 mg DAILY PETER Administration Aspirin 81 mg 11/23/19 09:00 11/23/19 10:25 Aspirin Chewable PO 81 mg DAILY PETER Administration Atorvastatin Calci um 20 mg 11/23/19 21:00 11/23/19 21:30 Lipitor PO Not Given BEDTIME PETER Clopidogrel Bisulf ate 75 mg 11/23/19 09:00 11/23/19 10:25 Plavix PO 75 mg DAILY PETER Administration Dextrose 25 ml 11/22/19 18:56 D50w IVP ONCE PRN hypoglycemia prot ocol Protocol Dextrose 50 ml 11/22/19 18:56 D50w IVP PRN PRN hypoglycemia prot ocol Protocol Diclofenac Sodium 1 applic 11/22/19 21:00 11/23/19 22:03 Voltaren TOPICAL Not Given QID PETER Duloxetine HCl 60 mg 11/23/19 09:00 11/23/19 10:27 Cymbalta PO 60 mg DAILY PETER Administration Enoxaparin Sodium 70 mg 11/22/19 22:30 11/23/19 10:24 Lovenox 1 mg/kg (70 mg) 70 mg SUBCUT Administration Q12H PETER Fludrocortisone Ac etate 0.1 mg 11/23/19 09:00 11/23/19 10:34 Florinef PO 0.1 mg DAILY PETER Administration Gemfibrozil 600 mg 11/23/19 09:00 11/23/19 10:25 Lopid PO 600 mg BID PETER Administration Glucagon 1 mg 11/22/19 18:56 Glucagen IM ONCE PRN Adult Acute Hypog lycemia Prot. Protocol Dextrose 500 mls @ 100 mls /hr 11/22/19 18:56 D5w IV ONCE PRN Adult Acute Hypog lycemia Prot Protocol Ceftriaxone Sodium 1,000 mg/ 50 mls @ 100 mls/ hr 11/23/19 16:00 11/23/19 17:34 Sodium Chloride IV 100 mls/hr Q24H PETER Administration Protocol Sodium Chloride 1,000 mls @ 100 m ls/hr 11/22/19 19:26 11/24/19 01:32 Sodium Chloride 0.9% IV 100 mls/hr .Q10H PETER Administration Insulin Aspart 0 unit 11/22/19 21:00 11/24/19 07:50 Novolog SUBCUT Not Given WM&BEDTIME PETER Protocol Insulin Detemir 20 unit 11/22/19 21:00 11/23/19 21:31 Levemir SUBCUT Not Given BEDTIME PETER Metoprolol Tartrat e 25 mg 11/23/19 09:00 11/23/19 17:08 Lopressor PO Not Given BID PETER Morphine Sulfate 2 mg 11/22/19 19:26 Morphine IVP Q4H PRN SEVERE PAIN Non-Formulary Medi cation 400 mg 11/22/19 21:00 11/22/19 21:26 Pentoxifylline PO Not Given TID PETER Ondansetron HCl 4 mg 11/22/19 19:26 11/23/19 20:12 Zofran IVP 4 mg Q6H PRN Administration NAUSEA AND VOMITI NG Pantoprazole Sodiu m 40 mg 11/23/19 09:00 11/23/19 17:36 Protonix PO 40 mg BID PETER Administration Sodium Chloride 1 gm 11/23/19 18:00 11/23/19 17:37 Salt Tab PO 1 gm BID PETER Administration No Known Allergies Allergy (Verified 11/22/19 13:46) Vitals/I&O/Wt Last Vital Signs Temp 98.9 F 11/24/19 04:00 Pulse 62 11/24/19 06:00 Resp 16 11/24/19 06:00 BP 123/86 11/24/19 06:00 Pulse Ox 95 11/24/19 06:00 11/23/19 11/24/19 11/24/19 22:59 06:59 14:59 Intake Total 0 / 1000 1146.667 / 2146.667 Output Total 250 / 500 Balance 0 / 750 896.667 / 1646.667 Weight last 48 hrs Weight 67.585 kg Physical Exam Const: COMMON NORMALS: no acute distress, patient oriented x3 and alert GENERAL APPEARANCE: cooperative, comfortable, frail appearing and appears older than stated age NUTRITIONAL APPEARANCE: obese centrally obese ORIENTATION/CONSCIOUSNESS: Yes awake and Yes confused HENMT: COMMON NORMALS: normocephalic, atraumatic and hearing grossly normal bilaterally HEAD & SCALP: normocephalic and atraumatic EXTERNAL EAR: Yes external ear abnormal (long laceration on external L ear extending to cheek) MOUTH: moist mucous membranes abnormal Details: parched TEETH & GINGIVA: Yes poor dentition Eye: COMMON NORMALS: Equal, round and reactive pupils present, EOMs intact bilaterally and conjunctivae normal CONJUNCTIVA: Yes conjunctivae normal PUPIL: Yes Equal, round and reactive pupils present Neck/C-Spine: COMMON NORMALS: full ROM GENERAL: Yes normal visual inspection and Yes trachea midline Resp: COMMON NORMALS: normal respiratory effort, No retractions, No use of accessory muscles and clear to auscultation bilaterally EFFORT & INSPECTION: Yes able to speak in complete sentences, Yes symmetric chest movement and No tachypneic AUSCULTATION: clear to auscultation bilaterally OTHER: -on 2 L NC Cardio: COMMON NORMALS: regular rate, regular rhythm, S1 normal heart sound present, S2 normal heart sound present and No murmurs present (Cardio) RATE: regular rate RHYTHM: regular rhythm HEART SOUNDS: S1 normal heart sound present and S2 normal heart sound present GI: COMMON NORMALS: Normal to inspection, nondistended, normoactive bowel sounds present, Soft to palpation and non-tender PALPATION: Yes Soft to palpation Extremity: COMMON NORMALS: normal to inspection NARRATIVE EXTREMITY EXAM: -non-pitting ankle edema now resolved Neuro: COMMON NORMALS: patient oriented x3, moves all extremities and no focal motor deficits SENSORIUM/ORIENTATION: Yes alert SPEECH: speech normal SENSORY EXAM: Yes sensory level loss detected (bilateral LEs) MOTOR EXAM: Normal motor muscle tone present throughout Psych: COMMON NORMALS: mental status grossly normal, Normal thought process present, cooperative, normal affect and speech normal SPEECH: Yes normal speech THOUGHT PROCESS: Normal thought process present Skin: COMMON NORMALS: no jaundice and no mottling NARRATIVE SKIN EXAM: - skin tears on upper extremities -laceration over L external ear extending to cheek, sutured -scabs over bilateral knees and legs -scattered bruising diffusely -callus on R great toe; 1.5 x 1.0 well circumscribed lesion on R lateral ankle, no odor, no drainage, good granulation tissue on wound bed, no tunneling NAILS: dystrophic (fingernails) Urinary Catheter Management^: Hilario: Cath Placed During This Visit: yes Reason for Continuing Indwelling Catheter: Accurate Measurement of Urinary Output in Critically Ill Patients Urinary Catheter Date of Insertion: 11/23/19 Urinary Catheter Time of Insertion: 18:00 Data : 11/24/19 04:48 11/24/19 16:59 Micro: Microbiology 11/22/19 16:10 Blood Culture - Preliminary Blood NEGATIVE TO DATE 11/22/19 16:05 Blood Culture - Preliminary Blood NEGATIVE TO DATE A&P Assessment and plan (1) Acute renal failure: -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 Staley appreciated -also noted hyperkalemia, hyperphosphatemia, increased anion gap metabolic acidosis -Mg wnl (2.2) -renal US shows small 11 mm right renal calculus, no hydronephrosis -may need dialysis if not improving -Suspicion for possible adrenal insufficiency, stimulation test ordered, start on stress dose steroids -C-ANCA ordered to evaluate for possible Blue's granulomatosis Status: Acute Qualifiers: Acute renal failure type: unspecified Qualified Code(s): N17.9 - Acute kidney failure, unspecified (2) Altered mental status: -likely multifactorial given UTI, metabolic encephalopathy with acute renal failure and electrolyte abnormalities -strict fall precautions -repeat CT head unchanged Status: Acute Qualifiers: Altered mental status type: somnolence Qualified Code(s): R40.0 - Somnolence (3) Syncope: -per history, has had several episodes of syncope including while driving; unclear etiology -med list includes florinef so likely component of orthostasis; orthostatics positive; on Florinef, add salt tablets -close monitoring of vital signs -telemetry monitoring -Echo: EF=45%, global left ventricular hypokinesis, G2DD, mild pulmonary hypertension, moderate MR, mild , moderate TR. -carotid US: <50% bilateral stenosis -CT head shows evidence of multiple prior lacunar infarcts involving the basal ganglia bilaterally, left caudate, right thalamus and right cerebellum. This may be contributing to his unsteady gait and poor balance. Repeat CT unchanged -UA shows evidence of infection -PT/OT evaluations appreciated: SNF recommended -noted anemia and acute renal impairment -IVF hydration -CT C-spine and facial bones noted -strict fall precautions -CPK wnl -Noted orthostatic hypotension here, in the context of poorly controlled diabetes and peripheral neuropathy suspect that this is to some degree due to autonomic dysfunction. Status: Acute Qualifiers: Syncope type: unspecified Qualified Code(s): R55 - Syncope and collapse (4) NSTEMI (non-ST elevated myocardial infarction): -noted troponin elevation with delta of -12. Has underlying renal impairment -serial ECGs -telemetry monitoring -Echo: EF=45%, global LV hypokinesis, G2DD, mild pulmonary HTN, moderate MR, mild , moderate TR -hold therapeutic Lovenox, ASA, Plavix due to worsening anemia and potential for temporary dialysis catheter placement; continue statin, BB -nuclear stress testing pending report Status: Acute (5) UTI (urinary tract infection): -symptomatic with noted dysuria, urinary frequency -suspect underlying BPH with noted nocturia but would hold off on adding Flomax due to concern for orthostasis -continue Ceftriaxone -urine cx: GNRs, pending ID & sensitivity -blood cx: prelim negative -continue to monitor urine output -mild leukocytosis now resolved, currently afebrile Status: Acute Qualifiers: Hematuria presence: without hematuria Urinary tract infection type: acute cystitis Qualified Code(s): N30.00 - Acute cystitis without hematuria (6) Peripheral neuropathy: -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 No need to resume vitamin B12 replacement Status: Chronic Qualifiers: Peripheral neuropathy type: polyneuropathy, unspecified Qualified Code(s): G62.9 - Polyneuropathy, unspecified (7) Dyslipidemia: -lipid panel noted -CPK wnl, on statin Status: Chronic (8) Peripheral vascular disease: -unknown how extensive this is -on DAPT and statin -on pentoxifylline Status: Chronic (9) HTN (hypertension): -VSS; continue to monitor -continue to hold ACEi due to renal impairment Status: Chronic Qualifiers: Hypertension type: essential hypertension Qualified Code(s): I10 - Essential (primary) hypertension (10) Diabetes mellitus: -A1c-10.1 -complicated by nephropathy and peripheral neuropathy -Accucheks, ISS, hypoglycemia precautions -consistent carb diet as tolerated Status: Chronic Qualifiers: Diabetes mellitus complication status: with other specified complication Diabetes mellitus fci insulin use: with terminal operations manager use Diabetes mellitus type: type 2 Qualified Code(s): E11.69 - Type 2 diabetes mellitus with other specified complication; Z79.4 - senior care (current) use of insulin (11) CKD (chronic kidney disease), stage III: -as noted above Status: Acute (12) Chronic anemia: -acute on chronic normocytic/macrocytic anemia -baseline Hg is around 10-12 -on dual antiplatelet therapy and therapeutic AC -continue to monitor H/H closely -transfuse if continued drop < 8; received 1 unit of PRBCs (11/22) Status: Acute (13) CVA (cerebral vascular accident): -noted evidence of prior lacunar infarcts on CT head -no focal neuro deficits Status: Chronic Qualifiers: CVA mechanism: unspecified Qualified Code(s): I63.9 - Cerebral infarction, unspecified (14) Gout: -no clinical evidence of acute flare -on allopurinol Status: Chronic Qualifiers: Chronicity: chronic Gout etiology: unspecified cause Gout site: unspecified site Presence of tophus: without tophus Qualified Code(s): M1A.9XX0 - Chronic gout, unspecified, without tophus (tophi) (15) GERD (gastroesophageal reflux disease): -on PPI Status: Chronic Qualifiers: Esophagitis presence: esophagitis presence not specified Qualified Code(s): K21.9 - Gastro-esophageal reflux disease without esophagitis (16) Pulmonary HTN: Status: Acute (17) Congestive heart failure: -Echo as noted above -on IVF so monitor closely for fluid overload Status: Acute Qualifiers: Heart failure chronicity: chronic Heart failure type: combined systolic and diastolic Qualified Code(s): I50.42 - Chronic combined systolic (congestive) and diastolic (congestive) heart failure Additional A&P Information -Morbid obesity: BMI-32 kg/m2 -Chronic RLE wound; has been f/u at [facility] wound care clinic; has services -Request ST evaluation for cognitive testing suspicious given additional history obtained from daughter that he may have some degree of dementia, likely vascular due to history of prior CVA/TIAs -GI ppx with PPI -DVT ppx with SCDs, on therapeutic lovenox -mechanical soft diet with thin liquids per ST evaluation -Dispo: home with services through [facility]; discussed possibility of SNF placement which he is willing to consider, has been to [facility] before. [facility] choice [facility]. COVID-19 test negative -Code status: FULL code -spoke to daughter Angelic and updated her on patient's clinical status -continue ICU care due to low threshold for decompensation Attestations Medical Necessity Statement*: Patient requires hospitalization for continued management of acute renal failure, NSTEMI, UTI, anemia, including continued monitoring of renal function, hemoglobin, hemodynamic status. Time Spent in Patient Care: Greater than 35 minutes (>than 50% of time spent in counselling and/or direct pt care on unit) . Coding Level of Care Code Acute Manager Pe for g Fwd Exam Comprehensive Diagnoses Acute renal failure N17.9 Acute renal failure type: unspecified Altered mental status R40.0 Altered mental status type: somnolence Syncope R55 Syncope type: unspecified NSTEMI (non-ST elevated myocardial infarction) I21.4 UTI (urinary tract infection) N30.00 Hematuria presence: without hematuria Urinary tract infection type: acute cystitis Peripheral neuropathy G62.9 Peripheral neuropathy type: polyneuropathy, unspecified Dyslipidemia E78.5 Peripheral vascular disease I73.9 HTN (hypertension) I10 Hypertension type: essential hypertension Diabetes mellitus E11.69; Z79.4 Diabetes mellitus complication status: with other specified complication Diabetes mellitus terminal operations manager insulin use: with terminal operations manager use Diabetes mellitus type: type 2 CKD (chronic kidney disease), stage III N18.3 Chronic anemia D64.9 CVA (cerebral vascular accident) I63.9 CVA mechanism: unspecified Gout M1A.9XX0 Chronicity: chronic Gout etiology: unspecified cause Gout site: unspecified site Presence of tophus: without tophus GERD (gastroesophageal reflux disease) K21.9 Esophagitis presence: esophagitis presence not specified Pulmonary HTN I27.20 Congestive heart failure I50.42 Heart failure chronicity: chronic Heart failure type: combined systolic and diastolic
--- NOTE | 2019-11-24 08:11 | XR_ITS ---
WS: [id number] Portable AP upright chest, 11/24/2019 Clinical Data: leukocytosis, hypoxia, altered mental status Comparison: Portable chest, 10/21/2018. Findings: There are patchy opacities throughout the lungs which may represent diffuse pneumonia and/o r pulmonary edema. There is a dense opacity overlying the surface of left diaphragm. No pneumothorax is present. The heart is slightly enlarged. Small effusions are present. The aortic arch is tortuous. Monitor leads are on the chest wall. There are healed left third, fourth, fifth and eighth rib fract ures. XR/XR chest 1V portable [id number] Impression: 1. Bilateral patchy opacities which may represent diffuse pneumonia or pulmonar y edema. 2. Dense opacity over surface of left diaphragm which may represent atelectasis or pneumonia. 3. Mild cardiomegaly.
--- NOTE | 2019-11-24 09:00 | ECG_ITS ---
[facility] Test Date: 2019-11-24 Pat Name: Dinh Concepcion Department: Room: ICU12 Gender: Male Lab Support Technician: Karina London : 1945 Requested By: Elizabeth Lynch Order Number: [id number] MD: Missy Ludwig M.D. Interpretive Statements NAME OF STUDY: LEXISCAN SESTAMIBI STRESS TEST INDICATION: Chest Pain PROCEDURE: At the baseline, the blood pressure was 101/65 mmHg, oxygen saturation 98% with a heart rate of 61 bpm. The electrocardiogram showed normal sinus rhythm, normal axis with nonspecific ST-T wave changes. The Lexiscan was infused over a period of 20 seconds. A total of 0.4 milligrams of Lexiscan was infused. The stress phase was continued for a total of 5 minutes. Heart rate at the end of the stress phase was 62 bpm, oxygen saturation 97% with a blood pressure 111/63 mmHg. The EKG at the peak infusion revealed normal sinus rhythm with no significant ST-T wave changes. Study was terminated due to protocol completion. Sestamibi was injected 20 seconds after the Lexiscan infusion. Blood pressure at the end of the recovery phase was 107/66 mmHg, oxygen saturation 97% with a heart rate of 62 beats per minute. CONCLUSION: 1. No significant EKG changes with the LexiScan infusion. 2. No LexiScan induced chest pain or cardiac arrhythmia. 3. Normal blood pressure and heart rate response. 4. Sestamibi/sestamibi perfusion scan pending; see separate report. Electronically Signed On 11-24-2019 17:32:22 CDT by Missy Ludwig M.D. [email or web address]
[2019-11-24] MEDS: regadenoson 0.4 Mg/5 ml Syringe IVP (10:20)
--- NOTE | 2019-11-24 10:32 | PC.SLP ---
Attempted to see patient, however, patient was in Nuclear Medicine. Will attempt to see patient later today.
--- NOTE | 2019-11-24 10:40 | PC.CHAP ---
Pastoral Care Encounter/Spiritual Assessment Type of Contact [] Declined survey worker visit [] Patient/Family/Request visit [] Outpatient visit [] Follow-up visit [] Physician referral [] Code/Alert [x] Routine visit [] Staff referral [] Actively dying [] Patient sleeping [] Family support [] [] Out of room [] Palliative care [] [x] Receiving care in room [] Pre-surgical visit [] Trauma [] Long length of stay [] ICU visit [] Other: Relational/Emotional Strength [] Patient feels connected with others/family/visitors/staff [] Distress [] Loneliness/isolation [] Abandonment Spirituality of Patient [] Person of Keyla [] Attends Jew of their Keyla [] Believes in Prayer [] Reads Bible or Gnosticism materials [] There are Spiritual issues to be addressed Deputy Register Of Deeds Interventions [] Prayer [] Active listening [] Non-anxious presence [] Spiritual/emotional support [] Crisis/trauma care [] Spiritual counseling [] Bereavement support [] Provided bereavement packet [] Provided Bible/devotional materials [] Provided toy/stuffed animal, coloring book to patient or family member [] Provided Communion [] Anointing/[place] [] Salvation [x] Completed spiritual assessment [] Other: Impact on Illness or Injury [] Angry [] Fearful [] Anxious [] Often cries [] Exhaustion [] Unable to work [] Unable to attend catholic [] Unable to walk/stand [] Unable to read [] Unable to drive [] Unable to eat/drink [] Unable to sleep [] Unable to be with family [] Patient intubated [] Other: Summary Time spent with patient
[2019-11-24] MEDS: ondansetron 2 mg/ML SDV 2 mL 4 MG IVP (10:56)
[2019-11-24 11:02] LABS: Glucose Point of Care 62 mg/dL (70-110)
--- NOTE | 2019-11-24 11:22 | NMCV_ITS ---
NM josé luis perf SPECT r/s* [id number] JameyDinh Age: 74 Gender: M : 1945 Exam Date: 11/24/2019 11:22 Ordering Phys: Elizabeth Lynch MD Technologist: PARAMJIT Huerta Exam Location: [facility] Indications: FALL, LAC TO LEFT EAR STRESS TEST Please see separate stress test report in [facility] for full findings IMAGE PROTOCOL Rest/Stress 1 Lexiscan Day Radiopharmaceutical Dose (mCi) Administration Site Administered by Rest: Tc-99m 11.0 IV PARAMJIT Vicente Sestamibi Stress:Tc-99m 32.9 IV PARAMJIT Vicente Sestamibi Rest: 24-Nov-2019 60 Discovery 630 Stress: 24-Nov-2019 30 Discovery 630 0.4mg Lexiscan. Supine position only as patient was unable to lay prone. SPECT RESULTS Technical Quality: Good Raw Data Analysis: Normal Image Corrections: No attenuation or motion correction applied Summed Stress Score: 16 Summed Rest Score: 12 Summed Difference Score: 4 PERFUSION FINDINGS Large area of fixed perfusion defect noted in basal to distal inferior and basal to mid inferolateral wall suggestive of old myocardial infarction versus scarring. FUNCTIONAL RESULTS (calculated via Gated SPECT) Stress Image LV EF (%): 50 Stress EDV (mL):88 TID: 1.05 Stress ESV (mL):44 Rest Image LV EF (%): 50 FUNCTIONAL FINDINGS: Inferior wall akinesis IMPRESSIONS Medium-sized area of old myocardial infarction versus scarring noted in basal to distal inferior and basal to mid inferolateral wall suggestive of involvement of either dominant RCA or left circumflex artery. This study is negative for ischemia. EKG segment will be documented separately Leena Lynn MD (Electronically Signed) Final Date: 24 November 2019 21:21 S
[2019-11-24 11:30] LABS: Glucose Point of Care 78 mg/dL (70-110)
--- NOTE | 2019-11-24 13:13 | PC.NURSE ---
1000-- PT OFF UNIT TO [facility] FOR SESTAMIBI..
--- NOTE | 2019-11-24 13:50 | PM.CONSULT ---
Providers/Reason For Consult Consulting Physican/Specialty*: Nephrology Reason for Consult*: ROSENDA Attending Physician: Elizabeth Lynch MD Primary Care Provider: Elaine Nava APN History of Present Illness History of Present Illness Dinh Concepcion is a 74 year old male. Thanks for consultation. Mr Concepcion was admitted on 11/21 after falling from his roller seat. He sustained minor superficial injuries with no acute fractures seen on admission imaging. He has been falling with syncopal symptoms with increasing frequency over the last few months. He initially received Abx inc Rocephin for UTI. Following admission he had an episode of AMS, hypothermia, soft Bps. He required 1 unit of PRBCs. Florinef has been started. Remains on NS at 100ml/hr. He has been noted to be becoming oliguric, Hilario cath placed with small residual. Creatinine 1mg/dL last year. On admission creatinine 1.7mg/dL trending up to 2.7mg/dL today. Potassium is up to 6mmol/L today also. Renal sono looks good On admission CTs were done without contrast Echo done shows EF 45% , mild pulm HTN, moderate MR, mild , moderate TR. He remains on ASA and Plavix, reports no recent stent procedures. CXR yesterday showed Bilateral patchy opacities which may represent diffuse pneumonia or pulmonary edema. Dense opacity over surface of left diaphragm which may represent atelectasis or pneumonia. Other setswana testing includes a random luz maria of 8, CPK TSH 4.73. GNRs in urine. Blood cultures NGTD. Review of Systems Narrative: ROS - 12 point review of systems completed per HPI and subjective assessment, this includes Constitutional: Weakness, fatigue Respiratory: No SOB on exertion, comfortable at rest CardioVasc: No chest pain, palpitations Gastrointestinal: No nausea, no vomiting Neurological: No seizures, no AMS Derm: No new rashes, lesions or wounds Immunological: No seasonal and no food allergies Meds/Allergies Home Medications and Allergies Home Medications Medication Instructions Recorded Confirmed Last Taken Type allopurinol 300 mg PO DAILY 11/22/19 11/22/19 11/22/19 History aspirin 81 mg PO DAILY 11/22/19 11/22/19 11/22/19 History atorvastatin 20 mg PO BEDTIME 11/22/19 11/22/19 11/21/19 History clopidogrel 75 mg PO DAILY 08/01/3111/22/19 11/22/19 History cyanocobalamin (vitamin B-12) 1,000 mcg SUBCUT Q30D 11/22/19 11/22/19 Unknown History duloxetine 60 mg PO DAILY 11/22/19 11/22/19 11/22/19 History ergocalciferol (vitamin D2) 1,250 mcg PO Q7D 11/22/19 11/22/19 Unknown History fludrocortisone 0.1 mg PO DAILY 11/22/19 11/22/19 11/22/19 History gemfibrozil 600 mg PO BID 11/22/19 11/22/19 11/22/19 History glipizide-metformin 1 tab PO BID 11/22/19 11/22/19 11/22/19 History hydrocodone-acetaminophen 1 tab PO QID PRN 11/22/19 11/22/19 Unknown History insulin aspart U-100 [Novolog See Rx Instructions .ROUTE .COMPLEX 11/22/19 11/22/19 11/21/19 History Flexpen U-100 Insulin] insulin detemir U-100 [Levemir 24 unit SUBCUT QPM 11/22/19 11/22/19 11/21/19 History FlexTouch U-100 Insuln] lisinopril 2.5 mg PO DAILY 11/22/19 11/22/19 11/22/19 History metformin 500 mg PO DAILY 11/22/19 11/22/19 11/22/19 History ondansetron 4 mg PO Q4H PRN 11/22/19 11/22/19 Unknown History pantoprazole 40 mg PO BID 11/22/19 11/22/19 11/22/19 History pentoxifylline 400 mg PO TID 11/22/19 11/22/19 11/22/19 History Allergies Allergy/AdvReac Type Severity Reaction Status Date / Time No Known Allergies Allergy Verified 11/22/19 13:46 Current Medications Current Medications Generic Name Dose Route Start Last Admin Trade Name Freq PRN Reason Stop Dose Admin Hydrocodone Bitart/Acetaminophen 1 tab 11/22/19 19:26 11/23/19 10:24 [place] 5-325 Mg PO 1 tab Q4H PRN Administration MODERATE TO SEVERE PAIN Allopurinol 300 mg 11/23/19 09:00 11/23/19 10:26 Zyloprim PO 300 mg DAILY COUNTS INCLUDE 234 BEDS AT THE [facility] Administration Aspirin 81 mg 11/23/19 09:00 11/24/19 13:23 Aspirin Chewable PO Not Given DAILY COUNTS INCLUDE 234 BEDS AT THE [facility] Atorvastatin Calcium 20 mg 11/23/19 21:00 11/23/19 21:30 Lipitor PO Not Given BEDTIME COUNTS INCLUDE 234 BEDS AT THE [facility] Clopidogrel Bisulfate 75 mg 11/23/19 09:00 11/24/19 13:26 Plavix PO Not Given DAILY COUNTS INCLUDE 234 BEDS AT THE [facility] Diclofenac Sodium 1 applic 11/22/19 21:00 11/23/19 22:03 Voltaren TOPICAL Not Given QID COUNTS INCLUDE 234 BEDS AT THE [facility] Duloxetine HCl 60 mg 11/23/19 09:00 11/23/19 10:27 Cymbalta PO 60 mg DAILY COUNTS INCLUDE 234 BEDS AT THE [facility] Administration Fludrocortisone Acetate 0.1 mg 11/23/19 09:00 11/23/19 10:34 Florinef PO 0.1 mg DAILY COUNTS INCLUDE 234 BEDS AT THE [facility] Administration Gemfibrozil 600 mg 11/23/19 09:00 11/23/19 10:25 Lopid PO 600 mg BID COUNTS INCLUDE 234 BEDS AT THE [facility] Administration Ceftriaxone Sodium 1,000 mg/ 50 mls @ 100 mls/hr 11/23/19 16:00 11/23/19 17:34 Sodium Chloride IV 100 mls/hr Q24H COUNTS INCLUDE 234 BEDS AT THE [facility] Administration Protocol Sodium Chloride 1,000 mls @ 100 mls/hr 11/22/19 19:26 11/24/19 01:32 Sodium Chloride 0.9% IV 100 mls/hr .Q10H PETER Administration Insulin Aspart 0 unit 11/22/19 21:00 11/24/19 11:17 Novolog SUBCUT Not Given WM&BEDTIME COUNTS INCLUDE 234 BEDS AT THE [facility] Protocol Insulin Detemir 20 unit 11/22/19 21:00 11/23/19 21:31 Levemir SUBCUT Not Given BEDTIME COUNTS INCLUDE 234 BEDS AT THE [facility] Metoprolol Tartrate 25 mg 11/23/19 09:00 11/23/19 17:08 Lopressor PO Not Given BID COUNTS INCLUDE 234 BEDS AT THE [facility] Non-Formulary Medication 400 mg 11/22/19 21:00 11/22/19 21:26 Pentoxifylline PO Not Given TID COUNTS INCLUDE 234 BEDS AT THE [facility] Ondansetron HCl 4 mg 11/22/19 19:26 11/24/19 10:56 Zofran IVP 4 mg Q6H PRN Administration NAUSEA AND VOMITING Pantoprazole Sodium 40 mg 11/23/19 09:00 11/23/19 17:36 Protonix PO 40 mg BID PETER Administration Sodium Chloride 1 gm 11/23/19 18:00 11/23/19 17:37 Salt Tab PO 1 gm BID PETER Administration PFSH Acute PFSH: Medical History (Updated 11/24/19 @ 08:15 by Elizabeth Lynch MD) Chronic anemia CKD (chronic kidney disease), stage III CVA (cerebral vascular accident) Diabetes mellitus Dyslipidemia GERD (gastroesophageal reflux disease) Gout HTN (hypertension) Obstructive sleep apnea -severe per sleep study in 2016 Peripheral neuropathy Peripheral vascular disease Surgical History Hx of total knee arthroplasty Family History Other Cancer Diabetes Hypertension Denies family history of CAD (coronary artery disease) Social History (Updated 11/22/19 @ 19:03 by Elizabeth Lynch MD) Smoking and tobacco status: never smoked Alcohol intake: never Substance/Drug Use: never Lives independently: Yes Vitals/I&O/Wt Last Vital Signs Temp 98.9 F 11/24/19 04:00 Pulse 61 11/24/19 12:00 Resp 18 11/24/19 12:00 BP 143/82 11/24/19 12:00 Pulse Ox 98 11/24/19 12:00 11/23/19 11/24/19 11/24/19 22:59 06:59 14:59 Intake Total 0 / 1000 1146.667 / 2146.667 120 / 120 Output Total 250 / 500 60 / 60 Balance 0 / 750 896.667 / 1646.667 60 / 60 Physical Exam Narrative: EXAM NARRATIVE: Patient seen and examined via telemedicine, with the assistance of the bedside RN Constitutional: Awake, comfortable HEENT: Wet mucosa, no jvp, non icteric Lungs: Bilaterally clear without discernible wheeze, rales in all lung zones CVS: S1 S2, no murmurs Abdo: Soft, BS ok Ext 4: Minimal edema, peripheral perfusion with no cyanosis Neurological: Grossly non-focal Urinary Catheter Management^: Hilario: Cath Placed During This Visit: yes Reason for Continuing Indwelling Catheter: Accurate Measurement of Urinary Output in Critically Ill Patients Urinary Catheter Date of Insertion: 11/23/19 Urinary Catheter Time of Insertion: 18:00 Data Micro: Micro: Microbiology 11/22/19 14:33 Urine Culture - Pr eliminary Urine,Clean Catch Gram Negative R ods 11/22/19 16:10 Blood Culture - Pr eliminary Blood NEGATIVE TO MISTY E 11/22/19 16:05 Blood Culture - Pr eliminary Blood NEGATIVE TO MISTY E A&P Additional A&P Information 1. ROSENDA - Unclear, differential includes pre-renal azotemia from renal hypoperfusion. The case alludes to an as yet undiagnosed systemic disorder. The pulmonary infiltrates open the possibility of pulmonary-renal syndrome, ie ANCA assoc disease. Hypothermia also infers adrenal insufficiency. - W/u sent to include FE Na, Urea, urine microscopy, ANCA, complements, urine protein quantification - cont ivf with NS - high risk of needing dialysis in the next 24-48hrs given oliguria and hyperK - am labs - avoid the usuals 2. Hypothermia - ? Sepsis; urine cultures show GNRs being covered. Blood cultures NGTD; on Abx - luz maria 8; this is a suboptimal response given the stress he is under; will do stat luz maria stim test and given Solumedrol; cont Florinef 3. HyperK - Kayexalate and repeat labs later today - may need dialysis - thanks, I will follow closely Jet Staley MD Nephrology [phone] Patient seen and examined via telemedicine, with the assistance of the bedside RN Consult Attestations Medical Necessity Statement: Eval for renal failure Coding Level of Care Code Acute Powder Loader for Silvano Pelaez
[2019-11-24] MEDS: cosyntropin 0.25 mg SDV IVP (14:17)
[2019-11-24] MEDS: sodium polystyrene sulfonate 15 gm/60 mL Btl PO (14:52)
[2019-11-24] MEDS: HYDROcodone-acetaminophen 5-325 mg Tablet 1 TAB PO (14:53)
[2019-11-24] MEDS: enoxaparin 80 mg/0.8 mL Syringe 70 MG SUBCUT (14:53)
[2019-11-24 15:47] LABS: Complement C3 107 mg/dL (90-180)
[2019-11-24 15:53] LABS: Cosyntropin Baseline 11.11 mcg/dL
[2019-11-24 16:00] LABS: Cosyntropin 30 Minute 22.93 mcg/dL
[2019-11-24] MEDS: hydrocortisone 100 mg/2 mL SDV 50 MG IVP (16:45)
[2019-11-24] MEDS: cefTRIAXone 1,000 MG in sodium chloride 0.9% (plus) 50 ML 100 MG IV (16:45)
[2019-11-24 16:46] LABS: Glucose Point of Care 101 mg/dL (70-110)
[2019-11-24] MEDS: metoprolol tartrate 25 mg Tablet PO (16:47)
[2019-11-24] MEDS: sodium chloride 1 gm Tablet PO (16:48)
[2019-11-24] MEDS: pantoprazole DR 40 mg Tablet PO (16:48)
[2019-11-24] MEDS: fludrocortisone 0.1 mg Tablet PO (16:54)
[2019-11-24 17:01] LABS: Bilirubin Urine 1+ (NEGATIVE); Blood Urine 3+ (Negative); Glucose Urine UA Norm (Normal); Ketones Urine Negative (Negative); Leukocyte Esterase Urine 1+ (Negative); Nitrate Urine Negative (Negative); Protein Urine 2+ (Negative); Urine Color Yellow (Yellow); Urobilinogen Urine 4 mg/dL (Negative); pH Urine 5 (5-7)
[2019-11-24 17:03] LABS: Add Urine Culture? Yes; Bacteria Urine 1+; RBC Urine >100 /hpf (0-2); WBC Urine 25-40 /hpf (0-5)
[2019-11-24 17:27] LABS: Urine Creatinine 104 mg/dL (39-259); Urine Random Sodium 24 mmol/L
[2019-11-24 17:28] LABS: Potassium 5.5 mmol/L (3.5-5.1)
--- NOTE | 2019-11-24 17:57 | PC.NURSE ---
PT FELL OUT OF BED TRYING TO GET TO THE RESTROOM. HAD LARGE BOWEL MOVEMENT IN FLOOR. SKIN TEAR TO RIGHT ELBOW. STATES THAT HE HIT HIS HEAD, LEFT ELBOW, LEFT KNEE, HANDS. STATES HE ISN'T SURE IF HE BLACKED OUT OR WHAT HAPPENED. DR MURPHY AT BEDSIDE, DAUGHTER DEVAN HAD JUST LEFT, WILL CALL HER.
[2019-11-24 18:40] LABS: Urea Nitrogen,Urine Random 374 mg/dL
[2019-11-24 20:49] LABS: Glucose Point of Care 184 mg/dL (70-110)
[2019-11-24] MEDS: atorvastatin 40 mg Tablet 20 MG PO (21:14)
--- NOTE | 2019-11-24 21:16 | PC.NURSE ---
Not needed per MD.
[2019-11-25] VITALS (17 sets, daily range): BP systolic 130–169; BP diastolic 70–99; PULSE 59–72; RESP 5–18; TEMP 35.8–36.4; O2SAT 65–100
--- NOTE | 2019-11-25 | CT_ITS ---
WS: [id number] CT CHEST TECHNIQUE: Noncontrast CT of the chest with coronal and sagittal reformatted images. CLINICAL INFORMATION: FLUID IN LUNGS COMPARISON: None. DLP: 742.[address] scans at [facility] use at least one of these dose optimization techniques: automat ed exposure control; mA and/or kV adjustment per patient size (includes targeted exams where dose is matched to clinical indication); or iterative reconstruction. FINDINGS: Mild chronic emphysematous changes. Moderate bilateral pleural effusions right greater than left with compressive atelectasis in the lung bases. Bilateral patchy perihilar infiltrates extending into bot h upper lobes. Recommend correlation for pneumonitis. No focal consolidation. Bilateral bronchovascul ar thickening likely infectious or inflammatory. No mediastinal or hilar lymphadenopathy. Vascular ca lcification including coronary. No axillary lymphadenopathy. Thyroid gland is normal. Adrenal glands are normal. Renal cortical atrophy. Splenic granulomas. Cholecystectomy clips. Mild th oracic kyphosis with ankylosis.Chronic left rib fracture with callus formation. CT/CT chest wo con [id number] IMPRESSION: 1. Moderate bilateral pleural effusions right greater than left with bibasilar atelectasis. 2. Bilateral perihilar patchy and hazy groundglass infiltrates extending to th e upper lobes. 3. Correlation for pneumonitis. 4. No focal consolidation. 5. Coronary calcification.
[2019-11-25] MEDS: HYDROcodone-acetaminophen 5-325 mg Tablet 1 TAB PO (00:11)
[2019-11-25] MEDS: hydrocortisone 100 mg/2 mL SDV 50 MG IVP (02:51)
[2019-11-25 04:53] LABS: Basophils % 0.1 %; Eosinophils % 0.1 %; Hematocrit 30.4 % (42.0-52.0); Hemoglobin 9.3 g/dL (11.7-16.6); Lymphocytes # 0.7 10^3/uL (0.8-4.8); Lymphocytes % 4.6 %; Mean Corpuscular HGB Conc 30.6 g/dL (30.0-36.0); Mean Corpuscular Hemoglobin 30.4 pg (28.0-34.0); Mean Corpuscular Volume 99.3 fL (80-94); Mean Platelet Volume 11.4 fL (7.4-10.4); Monocytes # 0.8 10^3/uL (0.2-0.9); Monocytes % 5.4 %; Neutrophils # 12.61 10^3/uL (1.8-7.7); Neutrophils % 88.4 %; Nucleated Red Blood Cells # 0.1 /100WBC; Nucleated Red Blood Cells % 0.4 %; Platelet Count 317 10^3/cmm (130-400); Red Blood Count 3.06 10^6/uL (4.1-5.3); Red Cell Distribution Width 15.9 % (12.1-15.1); White Blood Count 14.3 10^3/uL (4.0-10.0)
[2019-11-25] MEDS: sodium chloride 0.9% 1,000 ML 100 ML IV (05:16)
[2019-11-25 05:26] LABS: Magnesium 2.1 mg/dL (1.7-2.3)
[2019-11-25 05:27] LABS: Albumin Level 2.5 g/dL (3.5-5.2); Alkaline Phosphatase 637 IU/L (40-130); Anion Gap 22.4 (5-19); Blood Urea Nitrogen 59 mg/dL (8-23); Calcium 7.6 mg/dL (8.5-10.5); Carbon Dioxide 14 mmol/L (22-29); Chloride 105 mmol/L (98-107); Globulin 3.1 g/dL (1.3-4.6); Glucose 215 mg/dL (65-115); Osmolality Calculated 287 mOsm/kg (285-295); Potassium 5.4 mmol/L (3.5-5.1); Sodium 136 mmol/L (136-145); Total Protein 5.6 g/dL (6.6-8.7)
[2019-11-25 05:32] LABS: Phosphorus 8.1 mg/dL (2.5-4.5)
[2019-11-25 05:40] LABS: Alanine Aminotransferase 1942 U/L (0-41)
[2019-11-25 06:00] LABS: Aspartate Amino Transferase 6294 U/L (0-40)
--- NOTE | 2019-11-25 06:55 | PC.NURSE ---
Report given to day shift.
--- NOTE | 2019-11-25 07:50 | CT_ITS ---
WS: [id number] CT ABDOMEN PELVIS TECHNIQUE: Noncontrast CT of the abdomen and pelvis with coronal and sagittal reformatted images. CLINICAL INFORMATION: multiorgan failure COMPARISON: None. DLP: 659.[address] scans at [facility] use at least one of these dose optimization techniques: automat ed exposure control; mA and/or kV adjustment per patient size (includes targeted exams where dose is matched to clinical indication); or iterative reconstruction. FINDINGS: Noncontrast liver is normal. Cholecystectomy clips. Splenic granulomas. Normal noncontrast liver. Adr enal glands are normal. Renal cortical atrophy. No hydronephrosis. Fatty atrophy of the pancreas. Tin y amount of perihepatic and perisplenic ascites. Normal caliber abdominal aorta. Small amount of asci ana cristina in the pelvis. No evidence of small or large bowel obstruction. No inguinal lymphadenopathy. No abdominal lymphadeno cristiane. CT/CT abdomen pelvis wo con [id number] IMPRESSION: 1. Small amount of perihepatic and perisplenic ascites. Small amount of pelvic ascites. 2. Moderate bilateral pleural effusions with bibasilar atelectasis. 3. Bilateral renal cortical atrophy. No hydronephrosis. 4. Normal caliber abdominal aorta. 5. Prior cholecystectomy. 6. Hilario catheter. 7. No evidence of small or large bowel obstruction.
--- NOTE | 2019-11-25 07:51 | PM.PN ---
Subjective Subjective: Interval history: Overnight, had 250 mL urine output, afebrile, hemodynamically stable, on 2 L NC. Per nursing staff, more confused this AM. Noted stable hemoglobin at 9.3, increasing leukocytosis at 14.3, continued hyperkalemia with potassium of 5.4, BUN increased to 59, creatinine up to 3.3, phosphorus at 8.1, noted significantly elevated LFTs. Will order CT of the abdomen and pelvis for further evaluation. Quite confused on return from CT scan, requiring multiple people to redirect and hold his extremities as he is trying to get out of bed. Discussed case with Dr. Staley and will need dialysis so will request temporary dialysis catheter placement. Repeat set of labs ordered for further evaluation. With continued confusion and difficulty with redirection will likely require intubation prior to temporary dialysis catheter placement. Keep NPO. Has been off anticoagulation and dual antiplatelet therapy for about 48 hours. Medications: Reviewed: Yes Medication Review Details: Active Medications Generic Name Dose Route Start Last Admin Trade Name Freq PRN Reason Stop Dose Admin Hydrocodone Bitart /Acetaminophen 1 tab 11/22/19 19:26 11/25/19 00:11 [place] 5-325 Mg PO 1 tab Q4H PRN Administration MODERATE TO SEVER E PAIN Aminophylline 25 mg 11/24/19 10:06 Aminophylline IVP 11/25/19 10:05 Q2M PRN see dose instruct ions Dextrose 25 ml 11/22/19 18:56 D50w IVP ONCE PRN hypoglycemia prot ocol Protocol Dextrose 50 ml 11/22/19 18:56 D50w IVP PRN PRN hypoglycemia prot ocol Protocol Duloxetine HCl 60 mg 11/23/19 09:00 11/24/19 09:00 Cymbalta PO Not Given DAILY PTEER Enoxaparin Sodium 70 mg 11/24/19 12:00 11/24/19 14:53 Lovenox 1 mg/kg (70 mg) 70 mg SUBCUT Administration Q24H PETER Fludrocortisone Ac etate 0.1 mg 11/23/19 09:00 11/24/19 09:00 Florinef PO Not Given DAILY PETER Glucagon 1 mg 11/22/19 18:56 Glucagen IM ONCE PRN Adult Acute Hypog lycemia Prot. Protocol Hydrocortisone Sod ium Succinate 50 mg 11/24/19 15:00 11/25/19 02:51 Solu-Cortef Inj IVP 50 mg Q12H PETER Administration Dextrose 500 mls @ 100 mls /hr 11/22/19 18:56 D5w IV ONCE PRN Adult Acute Hypog lycemia Prot Protocol Ceftriaxone Sodium 1,000 mg/ 50 mls @ 100 mls/ hr 11/23/19 16:00 11/24/19 17:34 Sodium Chloride IV Infused Q24H PETER Infusion Protocol Sodium Chloride 1,000 mls @ 100 m ls/hr 11/22/19 19:26 11/25/19 05:16 Sodium Chloride 0.9% IV 100 mls/hr .Q10H PETER Administration Insulin Aspart 0 unit 11/22/19 21:00 11/24/19 21:13 Novolog SUBCUT 4 unit WM&BEDTIME PETER Administration Protocol Insulin Detemir 20 unit 11/22/19 21:00 11/24/19 21:09 Levemir SUBCUT Not Given BEDTIME PETER Metoprolol Tartrat e 25 mg 11/23/19 09:00 11/24/19 16:47 Lopressor PO 25 mg BID PETER Administration Morphine Sulfate 2 mg 11/22/19 19:26 Morphine IVP Q4H PRN SEVERE PAIN Nitroglycerin 0.4 mg 11/24/19 10:06 Nitrostat SUBLINGUAL 11/25/19 10:05 Q5M PRN CHEST PAIN Ondansetron HCl 4 mg 11/22/19 19:26 11/24/19 10:56 Zofran IVP 4 mg Q6H PRN Administration NAUSEA AND VOMITI NG Ondansetron HCl 4 mg 11/24/19 10:06 Zofran IVP Q2M PRN NAUSEA Pantoprazole Sodiu m 40 mg 11/23/19 09:00 11/24/19 16:48 Protonix PO 40 mg BID PETER Administration Sodium Chloride 1 gm 11/23/19 18:00 11/24/19 16:48 Salt Tab PO 1 gm BID PETER Administration No Known Allergies Allergy (Verified 11/22/19 13:46) Vitals/I&O/Wt Last Vital Signs Temp 96.4 F L 11/25/19 07:00 Pulse 68 11/25/19 07:00 Resp 9 L 11/25/19 07:00 BP 151/86 11/25/19 07:00 Pulse Ox 95 11/25/19 07:00 11/24/19 11/25/19 11/25/19 22:59 06:59 14:59 Intake Total 410 / 1530 1000 / 2530 Output Total 250 / 310 Balance 410 / 1470 750 / 2220 Physical Exam Const: COMMON NORMALS: no acute distress and alert GENERAL APPEARANCE: frail appearing and appears older than stated age NUTRITIONAL APPEARANCE: obese centrally obese ORIENTATION/CONSCIOUSNESS: Yes awake and Yes confused OTHER: -Very difficult to redirect and quite restless HENMT: COMMON NORMALS: normocephalic, atraumatic and hearing grossly normal bilaterally HEAD & SCALP: normocephalic and atraumatic EXTERNAL EAR: Yes external ear abnormal (long laceration on external L ear extending to cheek) MOUTH: moist mucous membranes abnormal Details: parched TEETH & GINGIVA: Yes poor dentition Eye: COMMON NORMALS: EOMs intact bilaterally and conjunctivae normal CONJUNCTIVA: Yes conjunctivae normal PUPIL: Yes Dilated pupils (Equally reactive to light) bilaterally Neck/C-Spine: COMMON NORMALS: full ROM GENERAL: Yes normal visual inspection and Yes trachea midline Resp: COMMON NORMALS: normal respiratory effort, No retractions, No use of accessory muscles and clear to auscultation bilaterally EFFORT & INSPECTION: Yes able to speak in complete sentences, Yes symmetric chest movement and No tachypneic AUSCULTATION: clear to auscultation bilaterally OTHER: -on 2 L NC Cardio: COMMON NORMALS: regular rate, regular rhythm, S1 normal heart sound present, S2 normal heart sound present and No murmurs present (Cardio) RATE: regular rate RHYTHM: regular rhythm HEART SOUNDS: S1 normal heart sound present and S2 normal heart sound present GI: COMMON NORMALS: Normal to inspection, nondistended, normoactive bowel sounds present, Soft to palpation and non-tender PALPATION: Yes Soft to palpation Extremity: COMMON NORMALS: normal to inspection NARRATIVE EXTREMITY EXAM: -non-pitting ankle edema now resolved Neuro: COMMON NORMALS: moves all extremities and no focal motor deficits SENSORIUM/ORIENTATION: Yes alert, Yes Orientation impaired and Yes fluctuating sensorium SPEECH: speech normal SENSORY EXAM: Yes sensory level loss detected (bilateral LEs) MOTOR EXAM: Normal motor muscle tone present throughout Psych: COMMON NORMALS: normal affect and speech normal SPEECH: Yes normal speech ATTENTION/CONCENTRATION: Yes attention grossly impaired and Yes concentration grossly impaired INSIGHT: Limited insight present (Psych) Skin: COMMON NORMALS: no jaundice and no mottling NARRATIVE SKIN EXAM: -skin tears on upper extremities -laceration over L external ear extending to cheek, sutured -scabs over bilateral knees and legs -scattered bruising diffusely -callus on R great toe; 1.5 x 1.0 well circumscribed lesion on R lateral ankle, no odor, no drainage, good granulation tissue on wound bed, no tunneling NAILS: dystrophic (fingernails) Urinary Catheter Management^: Hilario: Cath Placed During This Visit: yes Reason for Continuing Indwelling Catheter: Accurate Measurement of Urinary Output in Critically Ill Patients Urinary Catheter Date of Insertion: 11/23/19 Urinary Catheter Time of Insertion: 18:00 Data : 11/25/19 04:46 11/25/19 04:46 Micro: Microbiology 11/22/19 14:33 Urine Culture - Preliminary Urine,Clean Catch Gram Negative Rods A&P Assessment and plan (1) Acute renal failure: -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 Staley appreciated -also noted hyperkalemia, hyperphosphatemia, increased anion gap metabolic acidosis with worsening renal function -Mg wnl (2.2) -renal US shows small 11 mm right renal calculus, no hydronephrosis -will need dialysis; request temporary dialysis catheter placement -cosyntropin stimulation test not indicative of adrenal insufficiency, d/c stress dose steroids -C-ANCA ordered to evaluate for possible Blue's granulomatosis Status: Acute Qualifiers: Acute renal failure type: unspecified Qualified Code(s): N17.9 - Acute kidney failure, unspecified (2) Acute liver failure: -Noted significant increase in LFTs today -Unclear etiology, ordered additional testing including GGT, hepatitis panel, HIV, ammonia, copper level, ceruloplasmin, CMV and EBV -Ordered CT of the abdomen and pelvis without contrast Status: Acute Qualifiers: Hepatic coma status: without hepatic coma Qualified Code(s): K72.00 - Acute and subacute hepatic failure without coma (3) Altered mental status: -likely multifactorial given UTI, metabolic encephalopathy with acute renal failure and electrolyte abnormalities. Increased confusion today, very difficult to redirect. With need for placement of temporary dialysis catheter would likely need to intubate -strict fall precautions -repeat CT head unchanged -One-on-one monitoring -CT chest ordered -broaden antibiotic spectrum with additional of Zosyn, would avoid Vanc for now due to renal failure Status: Acute Qualifiers: Altered mental status type: somnolence Qualified Code(s): R40.0 - Somnolence (4) Syncope: -per history, has had several episodes of syncope including while driving; unclear etiology -med list includes florinef so likely component of orthostasis; orthostatics positive; on Florinef, add salt tablets -close monitoring of vital signs -telemetry monitoring -Echo: EF=45%, global left ventricular hypokinesis, G2DD, mild pulmonary hypertension, moderate MR, mild , moderate TR. -carotid US: <50% bilateral stenosis -CT head shows evidence of multiple prior lacunar infarcts involving the basal ganglia bilaterally, left caudate, right thalamus and right cerebellum. This may be contributing to his unsteady gait and poor balance. Repeat CT unchanged -UA shows evidence of infection -PT/OT evaluations appreciated: SNF recommended -noted anemia and acute renal impairment -IVF hydration -CT C-spine and facial bones noted -strict fall precautions -CPK wnl -Noted orthostatic hypotension here, in the context of poorly controlled diabetes and peripheral neuropathy suspect that this is to some degree due to autonomic dysfunction. Status: Acute Qualifiers: Syncope type: unspecified Qualified Code(s): R55 - Syncope and collapse (5) NSTEMI (non-ST elevated myocardial infarction): -noted troponin elevation with delta of -12. Has underlying renal impairment -serial ECGs -telemetry monitoring -Echo: EF=45%, global LV hypokinesis, G2DD, mild pulmonary HTN, moderate MR, mild , moderate TR -hold therapeutic Lovenox, ASA, Plavix due to worsening anemia and potential for temporary dialysis catheter placement; continue statin, BB -nuclear stress testing with noted medium sized area of old IA vs. scarring noted in basal to distal inferior and basal to mid inferolateral wall suggestive of involvement of either dominant RCA or left circumflex artery. Status: Acute (6) UTI (urinary tract infection): -symptomatic with noted dysuria, urinary frequency -suspect underlying BPH with noted nocturia but would hold off on adding Flomax due to concern for orthostasis -continue Ceftriaxone -urine cx: GNRs, pending ID & sensitivity -blood cx: prelim negative -continue to monitor urine output -mild leukocytosis now resolved, currently afebrile Status: Acute Qualifiers: Urinary tract infection type: acute cystitis Hematuria presence: without hematuria Qualified Code(s): N30.00 - Acute cystitis without hematuria (7) Peripheral neuropathy: -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 No need to resume vitamin B12 replacement Status: Chronic Qualifiers: Peripheral neuropathy type: polyneuropathy, unspecified Qualified Code(s): G62.9 - Polyneuropathy, unspecified (8) Dyslipidemia: -lipid panel noted -CPK wnl, on statin Status: Chronic (9) Peripheral vascular disease: -unknown how extensive this is -on DAPT and statin; held due to need for temporary dialysis catheter placement -on pentoxifylline Status: Chronic (10) HTN (hypertension): -VSS; continue to monitor -continue to hold ACEi due to renal impairment Status: Chronic Qualifiers: Hypertension type: essential hypertension Qualified Code(s): I10 - Essential (primary) hypertension (11) Diabetes mellitus: -A1c-10.1 -complicated by nephropathy and peripheral neuropathy -Accucheks, ISS, hypoglycemia precautions -consistent carb diet as tolerated Status: Chronic Qualifiers: Diabetes mellitus type: type 2 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 Diabetes mellitus complication status: with other specified complication Qualified Code(s): E11.69 - Type 2 diabetes mellitus with other specified complication; Z79.4 - shelter (current) use of insulin (12) CKD (chronic kidney disease), stage III: -as noted above Status: Acute (13) Chronic anemia: -acute on chronic normocytic/macrocytic anemia -baseline Hg is around 10-12 -on dual antiplatelet therapy and therapeutic AC -continue to monitor H/H closely -transfuse if continued drop < 8; received 1 unit of PRBCs (11/22) Status: Acute (14) CVA (cerebral vascular accident): -noted evidence of prior lacunar infarcts on CT head -no focal neuro deficits Status: Chronic Qualifiers: CVA mechanism: unspecified Qualified Code(s): I63.9 - Cerebral infarction, unspecified (15) Gout: -no clinical evidence of acute flare -on allopurinol Status: Chronic Qualifiers: Gout site: unspecified site Gout etiology: unspecified cause Chronicity: chronic Presence of tophus: without tophus Qualified Code(s): M1A.9XX0 - Chronic gout, unspecified, without tophus (tophi) (16) GERD (gastroesophageal reflux disease): -on PPI Status: Chronic Qualifiers: Esophagitis presence: esophagitis presence not specified Qualified Code(s): K21.9 - Gastro-esophageal reflux disease without esophagitis (17) Pulmonary HTN: Status: Acute (18) Congestive heart failure: -Echo as noted above -on IVF so monitor closely for fluid overload Status: Acute Qualifiers: Heart failure type: combined systolic and diastolic Heart failure chronicity: chronic Qualified Code(s): I50.42 - Chronic combined systolic (congestive) and diastolic (congestive) heart failure Additional A&P Information -Morbid obesity: BMI-32 kg/m2 -Chronic RLE wound; has been f/u at [facility] wound care clinic; has services -Request ST evaluation for cognitive testing suspicious given additional history obtained from daughter that he may have some degree of dementia, likely vascular due to history of prior CVA/TIAs -GI ppx with PPI -DVT ppx with SCDs, on therapeutic lovenox -mechanical soft diet with thin liquids per ST evaluation. NPO for now given change in mental status, need for dialysis catheter placement -Dispo: home with services through [facility]; discussed possibility of SNF placement which he is willing to consider, has been to [facility] [place] before. [facility] choice is [facility]. COVID-19 test negative -Code status: FULL code -spoke to daughter Angelic and updated her on patient's clinical status -continue ICU care due to low threshold for decompensation Attestations Medical Necessity Statement*: Patient requires hospitalization for continued management of altered mental status, noted acute renal failure and acute hepatic failure, need for dialysis due to anasarca and worsening renal function, oliguria and electrolyte abnormalities. Time Spent in Patient Care: Greater than 35 minutes (>than 50% of time spent in counselling and/or direct pt care on unit). Critical Care Time: The high probability of a clinically significant, sudden or life threatening deterioration of the patient's [respiratory, cardiovascular, renal] system(s) required my full and direct attention, intervention and personal management. The critical care time is as shown. This time is in addition to time spent performing any reported procedures but includes the following: [x] Data and vital sign review and interpretation [x] Patient assessment, examination and intervention [x] Documentation [x] Medication orders and management Critical Care Time (min): 30 Coding Level of Care Code Acute [facility] Killer for [facility] Fwd Diagnoses Acute renal failure N17.9 Acute renal failure type: unspecified Acute liver failure K72.00 Hepatic coma status: without hepatic coma Altered mental status R40.0 Altered mental status type: somnolence Syncope R55 Syncope type: unspecified NSTEMI (non-ST elevated myocardial infarction) I21.4 UTI (urinary tract infection) N30.00 Urinary tract infection type: acute cystitis Hematuria presence: without hematuria Peripheral neuropathy G62.9 Peripheral neuropathy type: polyneuropathy, unspecified Dyslipidemia E78.5 Peripheral vascular disease I73.9 HTN (hypertension) I10 Hypertension type: essential hypertension Diabetes mellitus E11.69; Z79.4 Diabetes mellitus type: type 2 Diabetes mellitus 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 insulin use: with 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 use Diabetes mellitus complication status: with other specified complication CKD (chronic kidney disease), stage III N18.3 Chronic anemia D64.9 CVA (cerebral vascular accident) I63.9 CVA mechanism: unspecified Gout [id number].[id number] Gout site: unspecified site Gout etiology: unspecified cause Chronicity: chronic Presence of tophus: without tophus GERD (gastroesophageal reflux disease) K21.9 Esophagitis presence: esophagitis presence not specified Pulmonary HTN I27.20 Congestive heart failure I50.42 Heart failure type: combined systolic and diastolic Heart failure chronicity: chronic
[2019-11-25 08:03] LABS: Glucose Point of Care 191 mg/dL (70-110)
--- NOTE | 2019-11-25 08:14 | PM.PN ---
Subjective Subjective: Interval history: Remains very confused, fell last night. UO 250mL overnight and 100mL so far today. Kayexalate caused diarrhea but this is clearing up now. Minimal global edema. Medications: Reviewed: Yes Medication Review Details: Active Medications Generic Name Dose Route Start Last Admin Trade Name Freq PRN Reason Stop Dose Admin Hydrocodone Bitart /Acetaminophen 1 tab 11/22/19 19:26 11/25/19 00:11 [place] 5-325 Mg PO 1 tab Q4H PRN Administration MODERATE TO SEVER E PAIN Aminophylline 25 mg 11/24/19 10:06 Aminophylline IVP 11/25/19 10:05 Q2M PRN see dose instruct ions Dextrose 25 ml 11/22/19 18:56 D50w IVP ONCE PRN hypoglycemia prot ocol Protocol Dextrose 50 ml 11/22/19 18:56 D50w IVP PRN PRN hypoglycemia prot ocol Protocol Duloxetine HCl 60 mg 11/23/19 09:00 11/24/19 09:00 Cymbalta PO Not Given DAILY [facility] Enoxaparin Sodium 70 mg 11/24/19 12:00 11/24/19 14:53 Lovenox 1 mg/kg (70 mg) 70 mg SUBCUT Administration Q24H PETER Fludrocortisone Ac etate 0.1 mg 11/23/19 09:00 11/24/19 09:00 Florinef PO Not Given DAILY PETER Glucagon 1 mg 11/22/19 18:56 Glucagen IM ONCE PRN Adult Acute Hypog lycemia Prot. Protocol Hydrocortisone Sod ium Succinate 50 mg 11/24/19 15:00 11/25/19 02:51 Solu-Cortef Inj IVP 50 mg Q12H PETER Administration Dextrose 500 mls @ 100 mls /hr 11/22/19 18:56 D5w IV ONCE PRN Adult Acute Hypog lycemia Prot Protocol Ceftriaxone Sodium 1,000 mg/ 50 mls @ 100 mls/ hr 11/23/19 16:00 11/24/19 17:34 Sodium Chloride IV Infused Q24H PETER Infusion Protocol Sodium Chloride 1,000 mls @ 100 m ls/hr 11/22/19 19:26 11/25/19 05:16 Sodium Chloride 0.9% IV 100 mls/hr .Q10H PETER Administration Insulin Aspart 0 unit 11/22/19 21:00 11/24/19 21:13 Novolog SUBCUT 4 unit WM&BEDTIME PETER Administration Protocol Insulin Detemir 20 unit 11/22/19 21:00 11/24/19 21:09 Levemir SUBCUT Not Given BEDTIME PETER Metoprolol Tartrat e 25 mg 11/23/19 09:00 11/24/19 16:47 Lopressor PO 25 mg BID PETER Administration Morphine Sulfate 2 mg 11/22/19 19:26 Morphine IVP Q4H PRN SEVERE PAIN Nitroglycerin 0.4 mg 11/24/19 10:06 Nitrostat SUBLINGUAL 11/25/19 10:05 Q5M PRN CHEST PAIN Ondansetron HCl 4 mg 11/22/19 19:26 11/24/19 10:56 Zofran IVP 4 mg Q6H PRN Administration NAUSEA AND VOMITI NG Ondansetron HCl 4 mg 11/24/19 10:06 Zofran IVP Q2M PRN NAUSEA Pantoprazole Sodiu m 40 mg 11/23/19 09:00 11/24/19 16:48 Protonix PO 40 mg BID PETER Administration Sodium Chloride 1 gm 11/23/19 18:00 11/24/19 16:48 Salt Tab PO 1 gm BID PETER Administration No Known Allergies Allergy (Verified 11/22/19 13:46) Vitals/I&O/Wt Last Vital Signs Temp 96.4 F L 11/25/19 07:00 Pulse 68 11/25/19 07:00 Resp 9 L 11/25/19 07:00 BP 151/86 11/25/19 07:00 Pulse Ox 95 11/25/19 07:00 11/24/19 11/25/19 11/25/19 22:59 06:59 14:59 Intake Total 410 / 1530 1000 / 2530 Output Total 250 / 310 Balance 410 / 1470 750 / 2220 Physical Exam Narrative: EXAM NARRATIVE: Patient seen and examined via telemedicine, with the assistance of the bedside RN Constitutional: Awake, comfortable HEENT: Wet mucosa, no jvp, non icteric Lungs: Bilaterally clear without discernible wheeze, rales in all lung zones CVS: S1 S2, no murmurs Abdo: Soft, BS ok Ext 4: Minimal edema, peripheral perfusion with no cyanosis Neurological: Grossly non-focal Urinary Catheter Management^: Hilario: Cath Placed During This Visit: yes Reason for Continuing Indwelling Catheter: Accurate Measurement of Urinary Output in Critically Ill Patients Urinary Catheter Date of Insertion: 11/23/19 Urinary Catheter Time of Insertion: 18:00 Data : 11/25/19 04:46 11/25/19 04:46 Micro: Microbiology 11/22/19 14:33 Urine Culture - Preliminary Urine,Clean Catch Gram Negative Rods A&P Additional A&P Information 1. ROSENDA - Unclear, differential includes pre-renal azotemia from renal hypoperfusion, characterized by FE Na 0.5%. Hematuria, ? Hilario trauma vs glomerulonephritis - Serologies sent - today will also add EBV, CMV, repeat CPK - high risk of needing dialysis in the next 24-48hrs but no acute indication for dialysis today - may ened renal biopsy (ASA, Plavix held) - am labs - avoid the usuals 2. Hypothermia - ? Sepsis; urine cultures show GNRs being covered. Blood cultures NGTD; on Abx - received Solumedrol - luz maria stim test ok, unlikely to be adrenally insufficient 3. HyperK - Kayexalate worked 4. Acidosis with AG 22 - ? LA, ketosis or uremia - repeat LA; change ivf to bicarb gtt 5. hepatitis - acute transaminitis - add cmb, ebv, hepatitis - thanks, I will follow closely Jet Staley MD Nephrology [phone] Patient seen and examined via telemedicine, with the assistance of the bedside RN Attestations Medical Necessity Statement*: eval for ROSENDA Coding Level of Care Code Acute [employer] Agent for [facility]
[2019-11-25 08:45] LABS: ABG PH Result 7.28 (7.35-7.45); Alveolar-Arterial Oxygen Gradi 5.5 mmHg (5-10); Arterial Blood Gas Hematocrit 30.4 % (42-52); Base Excess ABG -11.8 mmol/L (-2.0-2.0); Blood Gas Allen Test Pos; Blood Gas Operator Identificat BD; Blood Gas Sample Site Brachial, left; Blood Gas Sample Type Arterial; HCO3 ABG 13.7 mmol/L (22-26); HGB O2 Sat 89.4 % (95-100); Ionized Calcium Level - ABG 1.1 mmol/L (1.1-1.4); Methemoglobin 1.4 % (0.4-1.5); Oxygen Saturation ABG 91.6; PO2 ABG 70.9 mmHg (80.0-100.0); Total Hemoglobin 9.9 g/dL (14-18)
[2019-11-25 09:13] LABS: Lactate (Lactic Acid level) 2.3 mmol/L (0.5-2.2)
[2019-11-25 09:15] LABS: Ammonia 31 umol/L (16-60)
[2019-11-25 09:25] LABS: Creatine Phosphokinase 202 U/L (39-308); Lipase 66 U/L (13-60)
[2019-11-25 09:37] LABS: Gamma Glutamyl Transferase 169 U/L (8-61)
[2019-11-25 09:43] LABS: HIV 1 & 2 Antibody Non-Reactive (Non-Reactiv); HIV 1 & 2 Antigen Non-Reactive (Non-Reactiv)
[2019-11-25 09:46] LABS: Hepatitis A Antibody IgM Non-Reactive (Nonreactive); Hepatitis B Core IgM Non-Reactive (Nonreactive); Hepatitis B Surface Antigen Non-Reactive (Nonreactive); Hepatitis C Virus Antibody Non-Reactive (Nonreactive)
[2019-11-25 10:18] LABS: INR 1.52 (0.8-1.2); Partial Thromboplastin Time 46.4 SECONDS (23.9-36.7)
--- NOTE | 2019-11-25 10:24 | XR_ITS ---
WS: [id number] CHEST XRAY TECHNIQUE: Portable chest. CLINICAL INFORMATION: tube placement COMPARISON: November 24, 2019 FINDINGS: Endotracheal tube with tip above the anusha measuring 2.4 CM. Enteric tube tip below the di aphragm with tip in the stomach. Heart: Normal cardiac silhouette. Lungs: Previously described diffuse bilateral pulmonary infiltrates have improved. Improved bilateral pleural effusions with residual small right pleural effusion. Bones: Hypertrophic changes thoracic spine. XR/XR chest 1V portable [id number] IMPRESSION: 1. Endotracheal tube with tip above the anusha measuring 2.4 cm. Enteric tube with tip in the stomach. 2. Previously described diffuse pulmonary infiltrates have improved with resid ual infiltrates worse in the right greater than left perihilar regions. 3. Improved pleural effusions with tiny residual right pleural effusion.
--- NOTE | 2019-11-25 10:28 | PC.SOCIAL ---
IMM Not Updated. Pg. 2 of IMM not updated at this time. Patient requiring intervention at this time, also a 1:1 sitter. Will update once patient is stable.
[2019-11-25] MEDS: rocuronium 10 mg/mL INJ 5mL IV (10:30)
--- NOTE | 2019-11-25 10:30 | PC.NURSE ---
1030- DR BROCK HERE TO INTUBATE PT. NORMA 70 & ETOMIDATE 20 GIVEN IVP. 8.0 TUBE 24 @LIP. OG PLaced W/ positive placement. dr hazel at bedside. pt combative, not able to redirect, doesn't follow direction. very restless, confused. daughter notified & on her way.
[2019-11-25 11:03] LABS: D Dimer 5.32 ug/mIFEU (0-0.59)
[2019-11-25] MEDS: piperacillin-tazobactam 3.375 GM in sodium chloride 0.9% (plus) 50 ML IV (12:01)
--- NOTE | 2019-11-25 12:23 | PC.OT ---
OT note: Received report that pt is to be on hold due to declining status. Will attempt again as able.
[2019-11-25 12:28] LABS: Fibrinogen 681 mg/dL (174-498)
[2019-11-25] MEDS: morphine 4 mg/mL SDV 1 mL 2 MG IVP ×3 (15:20→15:39)
[2019-11-25] MEDS: LORazepam 2 mg/mL INJ 1 mL IVP (15:20)
--- NOTE | 2019-11-25 15:33 | PC.RESP ---
extubated pt terminally extubated per family wishes
--- NOTE | 2019-11-25 17:09 | PM.DDS ---
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 Staley appreciated -also noted hyperkalemia, hyperphosphatemia, increased anion gap metabolic acidosis with worsening renal function -Mg wnl (2.2) -renal US shows small 11 mm right renal calculus, no hydronephrosis -will need dialysis; held this due to decompensation -cosyntropin stimulation test not indicative of adrenal insufficiency, d/c stress dose steroids -C-ANCA ordered to evaluate for possible Blue's granulomatosis Qualifiers: Acute renal failure type: unspecified Qualified Code(s): N17.9 - Acute kidney failure, unspecified (2) Acute liver failure: Problem details: -Noted significant increase in LFTs today and developed DIC -Unclear etiology, ordered additional testing including GGT, hepatitis panel, HIV, ammonia, copper level, ceruloplasmin, CMV and EBV -Ordered CT of the abdomen and pelvis without contrast Qualifiers: Hepatic coma status: without hepatic coma Qualified Code(s): K72.00 - Acute and subacute hepatic failure without coma (3) Altered mental status: Problem details: -likely multifactorial given UTI, metabolic encephalopathy with acute renal failure and electrolyte abnormalities. Increased confusion today, very difficult to redirect. With need for placement of temporary dialysis catheter would likely need to intubate -strict fall precautions -repeat CT head unchanged -One-on-one monitoring -CT chest: moderate bilateral pleural effusions -broaden antibiotic spectrum with additional of Zosyn, would avoid Vanc for now due to renal failure Qualifiers: Altered mental status type: somnolence Qualified Code(s): R40.0 - Somnolence (4) Syncope: Problem details: -per history, has had several episodes of syncope including while driving; unclear etiology -med list includes florinef so likely component of orthostasis; orthostatics positive; on Florinef, add salt tablets -close monitoring of vital signs -telemetry monitoring -Echo: EF=45%, global left ventricular hypokinesis, G2DD, mild pulmonary hypertension, moderate MR, mild , moderate TR. -carotid US: <50% bilateral stenosis -CT head shows evidence of multiple prior lacunar infarcts involving the basal ganglia bilaterally, left caudate, right thalamus and right cerebellum. This may be contributing to his unsteady gait and poor balance. Repeat CT unchanged -UA shows evidence of infection -PT/OT evaluations appreciated: SNF recommended -noted anemia and acute renal impairment -IVF hydration -CT C-spine and facial bones noted -strict fall precautions -CPK wnl -Noted orthostatic hypotension here, in the context of poorly controlled diabetes and peripheral neuropathy suspect that this is to some degree due to autonomic dysfunction. Qualifiers: Syncope type: unspecified Qualified Code(s): R55 - Syncope and collapse (5) NSTEMI (non-ST elevated myocardial infarction): Problem details: -noted troponin elevation with delta of -12. Has underlying renal impairment -serial ECGs -telemetry monitoring -Echo: EF=45%, global LV hypokinesis, G2DD, mild pulmonary HTN, moderate MR, mild , moderate TR -hold therapeutic Lovenox, ASA, Plavix due to worsening anemia and potential for temporary dialysis catheter placement; continue statin, BB -nuclear stress testing with noted medium sized area of old [place] vs. scarring noted in basal to distal inferior and basal to mid inferolateral wall suggestive of involvement of either dominant RCA or left circumflex artery. (6) UTI (urinary tract infection): Problem details: -symptomatic with noted dysuria, urinary frequency -suspect underlying BPH with noted nocturia but would hold off on adding Flomax due to concern for orthostasis -continue Ceftriaxone -urine cx: GNRs, pending ID & sensitivity -blood cx: prelim negative -continue to monitor urine output -mild leukocytosis now resolved, currently afebrile Qualifiers: Urinary tract infection type: acute cystitis Hematuria presence: without hematuria Qualified Code(s): N30.00 - Acute cystitis without hematuria (7) Peripheral neuropathy: Problem details: -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 No need to resume vitamin B12 replacement Qualifiers: Peripheral neuropathy type: polyneuropathy, unspecified Qualified Code(s): G62.9 - Polyneuropathy, unspecified (8) Dyslipidemia: Problem details: -lipid panel noted -CPK wnl, on statin (9) Peripheral vascular disease: Problem details: -unknown how extensive this is -on DAPT and statin; held due to need for temporary dialysis catheter placement -on pentoxifylline (10) HTN (hypertension): Problem details: -VSS; continue to monitor -continue to hold ACEi due to renal impairment Qualifiers: Hypertension type: essential hypertension Qualified Code(s): I10 - Essential (primary) hypertension (11) Diabetes mellitus: Problem details: -A1c-10.1 -complicated by nephropathy and peripheral neuropathy -Accucheks, ISS, hypoglycemia precautions -consistent carb diet as tolerated Qualifiers: Diabetes mellitus type: type 2 Diabetes mellitus skilled nursing insulin use: with skilled nursing use Diabetes mellitus complication status: with other specified complication Qualified Code(s): E11.69 - Type 2 diabetes mellitus with other specified complication; 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 (12) CKD (chronic kidney disease), stage III: (13) Chronic anemia: Problem details: -acute on chronic normocytic/macrocytic anemia -baseline Hg is around 10-12 -on dual antiplatelet therapy and therapeutic AC -continue to monitor H/H closely -transfuse if continued drop < 8; received 1 unit of PRBCs (11/22) (14) CVA (cerebral vascular accident): Problem details: -noted evidence of prior lacunar infarcts on CT head -no focal neuro deficits Qualifiers: CVA mechanism: unspecified Qualified Code(s): I63.9 - Cerebral infarction, unspecified (15) Gout: Problem details: -no clinical evidence of acute flare -on allopurinol Qualifiers: Gout site: unspecified site Gout etiology: unspecified cause Chronicity: chronic Presence of tophus: without tophus Qualified Code(s): M1A.9XX0 - Chronic gout, unspecified, without tophus (tophi) (16) GERD (gastroesophageal reflux disease): Problem details: -on PPI Qualifiers: Esophagitis presence: esophagitis presence not specified Qualified Code(s): K21.9 - Gastro-esophageal reflux disease without esophagitis (17) Pulmonary HTN: Problem details: -mild per Echo (18) Congestive heart failure: Problem details: -chronic combined systolic and diastolic Qualifiers: Heart failure type: combined systolic and diastolic Heart failure chronicity: chronic Qualified Code(s): I50.42 - Chronic combined systolic (congestive) and diastolic (congestive) heart failure Reason for Visit Reason for Visit: FALL, LAC TO LEFT EAR Summary Date and Time of : Date of : 11/25/19 Time of : 15:55 Summary: Summary: Patient was initially admitted secondary to recurrent falls and syncope complex hospital course. Noted to have NSTEMI and was started on therapeutic anticoagulation, beta-reji, statin, Plavix, aspirin and echo ordered as noted above. He had stress testing done for further evaluation of this, angiogram likely not a good option as he had ready begun to develop acute renal impairment. Over time he developed oliguria and worsening renal function and nephrology was consulted. Tried IV fluid hydration and replacement of electrolytes with noted increased anion gap metabolic acidosis with no real improvement. Discussed possibility of dialysis which would require temporary dialysis catheter placement. In the interim patient developed worsening confusion particularly overnight and on repeat labs was noted to have significantly impaired liver function and developed DIC. With continued confusion and need for dialysis catheter placement, patient was intubated. With continued decompensation particularly in light of DIC and acute liver failure had a goals of care discussion with family and they opted for transition to end-of-life care including terminal extubation which was done earlier this afternoon. Family was present at bedside throughout much of the day and patient shortly after extubation. He was noted to have persistent oozing orally. Additional imaging had been obtained including CT scan of the chest showed moderate pleural effusions bilaterally and CT scan of the abdomen and pelvis showing developing ascites. During goals of care discussion had also offered potential transfer which family declined. Likely cause of was DIC secondary to acute liver failure with multisystem organ failure. Additional Data: Advance directives?: No Discharge Plan Discharge Patient Disposition: Condition: Prescriptions: No Action metformin 500 mg tablet 500 mg PO DAILY RF: 0 atorvastatin 20 mg tablet 20 mg PO BEDTIME RF: 0 hydrocodone-acetaminophen 5-325 mg tablet 1 tab PO QID PRN (Reason: Pain) RF: 0 clopidogrel 75 mg tablet 75 mg PO DAILY RF: 0 pentoxifylline 400 mg tablet extended release 400 mg PO TID RF: 0 gemfibrozil 600 mg tablet 600 mg PO BID RF: 0 pantoprazole 40 mg tablet,delayed release (DR/EC) 40 mg PO BID RF: 0 cyanocobalamin (vitamin B-12) 1,000 mcg/mL solution 1,000 mcg SUBCUT Q30D RF: 0 aspirin 81 mg tablet,chewable 81 mg PO DAILY RF: 0 allopurinol 300 mg tablet 300 mg PO DAILY RF: 0 ergocalciferol (vitamin D2) 1,250 mcg (50,000 unit) capsule 1,250 mcg PO Q7D RF: 0 ondansetron 4 mg tablet,disintegrating 4 mg PO Q4H PRN (Reason: Nausea) RF: 0 fludrocortisone 0.1 mg tablet 0.1 mg PO DAILY RF: 0 lisinopril 2.5 mg tablet 2.5 mg PO DAILY RF: 0 glipizide-metformin 5-500 mg tablet 1 tab PO BID RF: 0 Novolog Flexpen U-100 Insulin 100 unit/mL (3 mL) insulin pen See Rx Instructions .ROUTE .COMPLEX RF: 0 duloxetine 60 mg capsule,delayed release(DR/EC) 60 mg PO DAILY RF: 0 Levemir FlexTouch U-100 Insuln 100 unit/mL (3 mL) insulin pen 24 unit SUBCUT QPM RF: 0 DS Attestations Time Spent in /Discharge Care*: greater than 30 min Quality - AMI: AMI present?: No Quality - Stroke: CVA present?: No Quality - VTE: VTE present?: No Coding Level of Care Code 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 Diagnoses Acute renal failure N17.9 Acute renal failure type: unspecified Acute liver failure K72.00 Hepatic coma status: without hepatic coma Altered mental status R40.0 Altered mental status type: somnolence Syncope R55 Syncope type: unspecified NSTEMI (non-ST elevated myocardial infarction) I21.4 UTI (urinary tract infection) N30.00 Urinary tract infection type: acute cystitis Hematuria presence: without hematuria Peripheral neuropathy G62.9 Peripheral neuropathy type: polyneuropathy, unspecified Dyslipidemia E78.5 Peripheral vascular disease I73.9 HTN (hypertension) I10 Hypertension type: essential hypertension Diabetes mellitus E11.69; Z79.4 Diabetes mellitus type: type 2 Diabetes mellitus 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 teacher insulin use: with 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 teacher use Diabetes mellitus complication status: with other specified complication CKD (chronic kidney disease), stage III N18.3 Chronic anemia D64.9 CVA (cerebral vascular accident) I63.9 CVA mechanism: unspecified Gout [id number].[id number] Gout site: unspecified site Gout etiology: unspecified cause Chronicity: chronic Presence of tophus: without tophus GERD (gastroesophageal reflux disease) K21.9 Esophagitis presence: esophagitis presence not specified Pulmonary HTN I27.20 Congestive heart failure I50.42 Heart failure type: combined systolic and diastolic Heart failure chronicity: chronic
--- NOTE | 2019-11-25 17:20 | PC.NURSE ---
1200-family at bedside. pt intubated & resting quietly. oral cavity continues to seep bright red blood. suctioned frequently with large clots. dr hazel has spoke to family regarding hemodialysis & catheter placement. awaiting dr hidalgo to place hd catheter. 1300-family off unit for lunch. dr villalba in room w/ this nurse. she reports pt is in DIC. LARGE AMOUNTS OF CLOTTED BLOOD SUCTIONED FROM MOUTH. 1400-DR VILLALBA SPOKE WITH FAMILY REGARDING PROGNOSIS WITH DIC & LIVER FAILURE. FAMILY ASKED TO HAVE SOME TIME TO TALK THINGS OVER 1530-PT TERMINALLY EXTUBATED PER FAMILY REQUEST. COMFORT MEDICATIONS GIVEN PER ORDERS. FAMILY AT BEDSIDE. TIME OF 1555..
--- NOTE | 2019-11-25 17:29 | PC.PT ---
PT note; nursing requests hold PT today, patient now intubated; will follow
--- NOTE | 2019-11-25 18:19 | PC.NURSE ---
1458- [facility] NOTIFIED OF PLANS TO TERMINALLY EXTUBATE PT. SPOKE WITH KITTY. 1504-TOD ALBERT CALLED BACK & STATED THAT WE COULD GO AHEAD & EXTUBATE. JUST CALL BACK WITH TIME OF . 155-NOTIFIED JESSI OF T.O.D. AWAITING CALL BACK TO RELEASE BODY.. 182-CONTINUE TO AWAIT RELEASE OF BODY BY [facility].
--- NOTE | 2019-11-25 23:05 | PC.NURSE ---
Spoke to Erickson with [facility]. Called to give us an update that they are still attempting to reach patient's daughter. Will call with new update.
[2019-11-26 12:29] LABS: Ceruloplasmin 47 mg/dL (18-36)
[2019-11-26 13:30] LABS: Cytomegalovirus Antibody (IGM) <30.00 AU/mL; EBV IGM TEST <36.00 U/mL; EBV Nuclear AG >600.00 U/mL
[2019-11-28 12:44] LABS: ANCA Interp Negative (Negative)
[2019-12-01 11:30] LABS: Copper Level 140 mcg/dL (70-175)
== END 2019-11-25 18:45 | disposition expired ==
LOC: ER 13:52 → MEDSURG 19:00 → ICU 11-23 16:29
PROVIDERS: Family Medicine; Internal Medicine Nephrology; Admitting Provider Family Medicine; PCP Nurse Practitioner Family; Visit Provider Family Medicine
DX: I21.4 Non-ST elevation (NSTEMI) myocardial infarction (principal); K72.00 Acute and subacute hepatic failure without coma; I63.9 Cerebral infarction, unspecified; D65 Disseminated intravascular coagulation [defibrination syndrome]; N17.9 Acute kidney failure, unspecified; E87.2 Acidosis; I13.0 Hypertensive heart and chronic kidney disease with heart failure and stage 1 through stage 4 chronic kidney disease, or unspecified chronic kidney disease; N30.00 Acute cystitis without hematuria; K52.1 Toxic gastroenteritis and colitis; N18.3 Chronic kidney disease, stage 3 (moderate); E87.5 Hyperkalemia; E83.39 Other disorders of phosphorus metabolism; I27.20 Pulmonary hypertension, unspecified; E11.42 Type 2 diabetes mellitus with diabetic polyneuropathy; N40.1 Benign prostatic hyperplasia with lower urinary tract symptoms; R35.1 Nocturia; E78.5 Hyperlipidemia, unspecified; I12.9 Hypertensive chronic kidney disease with stage 1 through stage 4 chronic kidney disease, or unspecified chronic kidney disease; E11.22 Type 2 diabetes mellitus with diabetic chronic kidney disease; E11.51 Type 2 diabetes mellitus with diabetic peripheral angiopathy without gangrene; K21.9 Gastro-esophageal reflux disease without esophagitis; Z91.81 History of falling; Z79.84 Long term (current) use of oral hypoglycemic drugs; Z79.82 Long term (current) use of aspirin; Z79.02 Long term (current) use of antithrombotics/antiplatelets; D63.1 Anemia in chronic kidney disease; G47.33 Obstructive sleep apnea (adult) (pediatric); T50.3X5A Adverse effect of electrolytic, caloric and water-balance agents, initial encounter; Y92.230 Patient room in hospital as the place of occurrence of the external cause
CPT/HCPCS: 12015; 12345; 36415; 36416; 36430; 36600; 51702; 70450; 70486; 71045; 71250; 72125; 74176; 76770; 78452; 80048; 80051; 80053; 80061; 80074; 81001; 82140; 82310; 82390; 82525; 82533; 82550; 82570; 82607; 82746; 82810; 82962; 82977; 83036; 83516; 83605; 83690; 83735; 83970; 83986; 84100; 84132; 84300; 84443; 84484; 84540; 85014; 85018; 85025; 85362; 85378; 85384; 85610; 85730; 86160; 86850; 86900; 86920; 87040; 87077; 87086; 87186; 87426; 87806; 92507; 92524; 92526; 92610; 93005; 93017; 93306; 93880; 94002; 94799; 96372; 96375; 97110; 97116; 97163; 97166; 97530; 97535; 99281; A4570; A9500; J0610; J0696; J0834; J1650; J1720; J1815; J2060; J2270; J2405; J2543; J2704; J2785; J3490; J7030; P9016; Q3014